=== PATIENT | female | born 1955 | race Caucasian/White ===

== ENCOUNTER 2019-09-19 08:58 | Outpatient (CLI) | payer BC, SELFPAY ==
--- NOTE | 2019-09-19 09:08 | MM_ITS ---
WS: [id number] BILATERAL DIGITAL SCREENING MAMMOGRAPHY WITH CAD CLINICAL INFORMATION: SCREENING HISTORY: Screening mammogram. No current complaints. COMPARISON: April 18, 2018 TECHNIQUE: Bilateral CC and MLO views. FINDINGS: The breasts are composed of heterogeneous fibroglandular density tissue, which can limit the detectio n of small underlying mass lesions. Punctate calcification left breast. No suspicious mass, asymmetry , calcifications, or architectural distortion. No evidence of malignancy. Partially visualized stable intramammary lymph node deep posterior right breast. MM/[id number] IMPRESSION: BI-RADS: 2-Benign FOLLOW UP: 1 Year Follow-up Recommend return to annual screening mammography.
== END 2019-09-19 08:59 | disposition home or self-care (01) ==
PROVIDERS: PCP Family Medicine; Visit Provider Family Medicine
DX: Z12.31 Encounter for screening mammogram for malignant neoplasm of breast (principal)
CPT/HCPCS: 77067

== ENCOUNTER 2020-11-03 09:00 | Outpatient (CLI) | payer BC, SELFPAY ==
--- NOTE | 2020-11-03 09:05 | MM_ITS ---
WS: [id number] Bilateral screening digital mammogram, 11/03/2020 Clinical Data: SCREENING Comparison: 09/19/2019, 04/18/2018, 11/04/2016, 05/21/2012, 05/09/2012, 04/20/2010, 06/23/2008. Findings: The breast parenchymal pattern shows heterogeneous density. No spiculated masses or clustered calcifi cations are seen. There are no secondary signs of carcinoma. Mole markers are on both breasts. There are small lymph nodes in both axilla. MM/[id number] Impression: 1. Negative bilateral mammogram unchanged. 2. Recommend annual screening mammograms. BIRADS: 1-Negative FOLLOW UP: 1 Year Follow-up The CAD schedule checker was used.
== END 2020-11-03 09:01 | disposition home or self-care (01) ==
LOC: RADSHAW 09:03
PROVIDERS: PCP Family Medicine; Visit Provider Family Medicine
DX: Z12.31 Encounter for screening mammogram for malignant neoplasm of breast (principal)
CPT/HCPCS: 77067

== ENCOUNTER 2021-12-13 14:46 | Outpatient (CLI) | payer BC, SELFPAY ==
--- NOTE | 2021-12-13 14:52 | MM_ITS ---
WS: [id number] BILATERAL 3D TOMOSYNTHESIS DIGITAL SCREENING MAMMOGRAPHY WITH CAD CLINICAL INFORMATION: SCREENING HISTORY: Screening mammogram. No current complaints. COMPARISON: November 03, 2020 TECHNIQUE: Bilateral CC and MLO views. FINDINGS: Scattered fibroglandular densities bilaterally. Incidental punctate and lucent centered calcification s. No suspicious focal mass, asymmetry, calcifications, or architectural distortion. No evidence of m alignancy. MM/[id number] IMPRESSION: BI-RADS: 2-Benign FOLLOW UP: 1 Year Follow-up Recommend return to annual screening mammography.
== END 2021-12-13 14:47 | disposition home or self-care (01) ==
LOC: RAD 14:46
PROVIDERS: PCP Family Medicine; Visit Provider Family Medicine
DX: Z12.31 Encounter for screening mammogram for malignant neoplasm of breast (principal)
CPT/HCPCS: 77063; 77067

== ENCOUNTER → 2022-05-05 15:05 | Outpatient (BNVA) | payer MEDICARE, BC, SELFPAY | PROVIDERS: PCP Family Medicine; Visit Provider Nurse Practitioner Family | DX: S82.401A Unspecified fracture of shaft of right fibula, initial encounter for closed fracture (principal); W00.0XXA Fall on same level due to ice and snow, initial encounter | CPT/HCPCS: 73610 ==

== ENCOUNTER 2022-05-05 15:35 | Outpatient (CLI) | payer MEDICARE, BC, SELFPAY | END 2022-05-05 15:36 | disposition home or self-care (01) | LOC: SPT 15:36 | PROVIDERS: PCP Family Medicine; Visit Provider Nurse Practitioner Family | DX: Z46.89 Encounter for fitting and adjustment of other specified devices (principal); S82.831D Other fracture of upper and lower end of right fibula, subsequent encounter for closed fracture with routine healing; X58.XXXD Exposure to other specified factors, subsequent encounter | CPT/HCPCS: 97760; 99204; L4361 ==

== ENCOUNTER → 2022-06-02 13:03 | Outpatient (BNVA) | payer MEDICARE, BC, SELFPAY | PROVIDERS: PCP Family Medicine; Visit Provider Nurse Practitioner Family | DX: S82.441D Displaced spiral fracture of shaft of right fibula, subsequent encounter for closed fracture with routine healing (principal); X58.XXXD Exposure to other specified factors, subsequent encounter | CPT/HCPCS: 73610; 99213 ==

== ENCOUNTER → 2022-07-01 09:50 | Outpatient (BNVA) | payer MEDICARE, BC, SELFPAY | PROVIDERS: PCP Family Medicine; Visit Provider Nurse Practitioner Family | DX: S82.401A Unspecified fracture of shaft of right fibula, initial encounter for closed fracture (principal); X58.XXXA Exposure to other specified factors, initial encounter | CPT/HCPCS: 73610; 99213 ==

== ENCOUNTER 2022-12-20 07:51 | Observation (INO) | payer MEDICARE, BC, SELFPAY ==
[2022-12-20] VITALS (8 sets, daily range): BP systolic 132–174; BP diastolic 59–102; PULSE 70–128; RESP 15–21; TEMP 36.1–36.7; O2SAT 96–100; BMI 26.6
--- NOTE | 2022-12-20 08:06 | CT_ITS ---
WS: [id number] CT ABDOMEN PELVIS TECHNIQUE: Noncontrast CT of the abdomen and pelvis with coronal and sagittal reformatted images. CLINICAL INFORMATION: abd pain COMPARISON: None. DLP: 476.86 mgy/cm All CT scans at [facility] use at least one of these dose optimization techniques: automated e xposure control; mA and/or kV adjustment per patient size (includes targeted exams where dose is matc hed to clinical indication); or iterative reconstruction. FINDINGS: Lung bases are well aerated. Noncontrast liver is normal. Small esophageal hernia. Tiny gallbladder c alculus. No gallbladder wall thickening or pericholecystic fluid. Noncontrast spleen is normal. Splen ic artery calcification. Fatty atrophy of the pancreas. Adrenal glands are normal. No obstructing jt al or ureteral calculi. No hydronephrosis. Prior hysterectomy. Surgical clips in the pelvis degrades some images. RIGHT lower quadrant ostomy. N o evidence of high-grade obstruction. Prior postoperative changes colectomy. No free fluid in the abd omen or pelvis. Tiny fat-containing umbilical hernia. IMPRESSION: 1. Ostomy in the RIGHT lower quadrant. No evidence of high-grade obstruction. Small peristomal herni a. 2. Prior postoperative changes colectomy or near total colectomy. 3. No free fluid in the abdomen or pelvis. 4. Small esophageal hernia. 5. Small gallbladder calculus. No gallbladder wall thickening or pericholecystic fluid. This could b e further evaluated with ultrasound. 6. No other acute findings.
--- NOTE | 2022-12-20 08:12 | W.ED.NAVMDI ---
HPI - Nausea/Vomiting/Diarrhea General: Chief complaint: Nausea/Vomiting/Diarrhea Stated complaint: n/v Time Seen by Provider: 12/20/22 07:54 Source: patient Mode of arrival: ambulatory Limitations: no limitations History of Present Illness: 67-year-old female states that she is had nausea vomiting over the last week. States she seen her PCP has been given Zofran with minimal improvement. She had a history of multiple surgeries has a history of Crohn's states she has been down here taking care of her parents has been under lots of stress she does smoke marijuana. States she has not been able to have anything resolve her vomiting she has had some abdominal cramping denies any severe pain denies any diarrhea denies any fevers. Associated nausea: Yes Associated symtoms: Reports anxiety and nausea; Denies chest pain or headache(s) Review of Systems Const: Denies: fever(s), chills, body aches or change in appetite ENMT: Denies: throat pain or dental pain Card: Denies: chest pain Resp: Denies: dyspnea GI: Reports: abdominal pain, nausea and vomiting; Denies: diarrhea Musc: Denies: neck pain or back pain Skin/Breast: Denies: rash Neuro: Denies: headache(s) Psych: Reports: anxiety PFSH ED PFSH: Medical History Closed left fibular fracture Social History Smoking and tobacco status: current every day smoker Second hand smoke exposure: Yes Smoking risk assessment/counseling performed?: No Alcohol intake: current Alcohol intake frequency: 0-2 Drinks per Day Alcohol type: other Desire information about alcohol rehabilitation?: No Counseling given: No Substance/Drug Use: never Desire information about substance/drug rehabilitation?: No Counseling given: No Physical Exam Const: COMMON NORMALS: no acute distress, patient oriented x3 and healthy appearing HENMT: COMMON NORMALS: normocephalic and atraumatic HEAD & SCALP: normocephalic and atraumatic Neck/C-Spine: COMMON NORMALS: supple Chest: COMMONS NORMALS: normal inspection of the chest Resp: COMMON NORMALS: normal respiratory effort and clear to auscultation bilaterally AUSCULTATION: clear to auscultation bilaterally Cardio: COMMON NORMALS: regular rhythm and No murmurs present (Cardio) RATE: tachycardic RHYTHM: regular rhythm GI: COMMON NORMALS: Normal to inspection, nondistended, normoactive bowel sounds present, Soft to palpation, non-tender and no masses PALPATION: Yes Soft to palpation Extremity: COMMON NORMALS: normal to inspection and full ROM Neuro: COMMON NORMALS: patient oriented x3, moves all extremities and no focal motor deficits Psych: COMMON NORMALS: mental status grossly normal, Normal thought process present and cooperative THOUGHT PROCESS: Normal thought process present Skin: COMMON NORMALS: no rashes or lesions noted and no wounds GENERAL SKIN EXAM: no rashes or lesions noted Course Vital Signs: Vital signs: Vital Signs Temperature 96.9 F L 12/20/22 07:57 Pulse Rate 97 12/20/22 09:47 Respiratory Rate 21 H 12/20/22 09:47 Blood Pressure 142/59 12/20/22 09:47 Pulse Oximetry 100 12/20/22 09:47 Oxygen Delivery Me thod Room Air 12/20/22 09:47 MDM - Nausea/Vomiting/Diarrhea Medical Decision Making Patient presents with vomiting is much improved here she feels much improved after meds and fluids she does have acute kidney injury along with dehydration likely from her vomiting CT of her abdomen is normal no signs of infection she does have an anion gap along with leukocytosis likely from her vomiting and dehydration as well I spoke to the hospitalist will admit at this time. Medical Records I reviewed the patient's medical records. Lab Data 12/20/22 08:13 12/20/22 08:13 Laboratory Results WBC 17.84 10^3/uL (3.29-11.43) H 12/20/22 08:13 RBC 5.28 10^6/uL (3.85-5.65) 12/20/22 08:13 Hgb 16.10 g/dL (11.27-16.99) 12/20/22 08:13 Hct 49.2 % (36-47) H 12/20/22 08:13 MCV 93.2 fl (85-98) 12/20/22 08:13 MCH 30.5 pg (27-33) 12/20/22 08:13 MCHC 32.7 g/dL (30-55) 12/20/22 08:13 RDW 13.8 % (12.1-15.1) 12/20/22 08:13 Plt Count 454 10^3/cmm (157-399) H 12/20/22 08:13 MPV 10.5 fL (7.4-10.4) H 12/20/22 08:13 Neut % (Auto) 83.5 % 12/20/22 08:13 Lymph % (Auto) 9.9 % 12/20/22 08:13 [place]ift % (Auto) 5.9 % 12/20/22 08:13 Eos % (Auto) 0.0 % 12/20/22 08:13 Baso % (Auto) 0.2 % 12/20/22 08:13 Neut # (Auto) 14.90 10^3/uL (1.8-7.7) H 12/20/22 08:13 Lymph # (Auto) 1.8 10^3/uL (0.8-4.8) 12/20/22 08:13 Tift # (Auto) 1.1 10^3/uL (0.2-0.9) H 12/20/22 08:13 Eos # (Auto) 0.0 10^3/uL (0.0-0.8) 12/20/22 08:13 Baso # (Auto) 0.0 10^3/uL (0.0-0.1) 12/20/22 08:13 Nucleated RBC % (auto) 0 % 12/20/22 08:13 Nucleated RBCs # 0.0 /100WBC 12/20/22 08:13 Sodium 134 mmol/L (136-145) L 12/20/22 08:13 Potassium 5.1 mmol/L (3.5-5.1) 12/20/22 08:13 Chloride 102 mmol/L (98-107) 12/20/22 08:13 Carbon Dioxide 11 mmol/L (22-29) L 12/20/22 08:13 Anion Gap 26.1 (5-19) H 12/20/22 08:13 BUN 95 mg/dL (8-23) H* 12/20/22 08:13 Creatinine 2.8 mg/dL (0.5-0.9) H 12/20/22 08:13 GFR Calculation 17.0 mL/min (90-130) L 12/20/22 08:13 Glucose 170 mg/dL (65-115) H 12/20/22 08:13 Calculated Osmolality 311 mOsm/kg (285-295) H 12/20/22 08:13 Calcium 10.5 mg/dL (8.5-10.5) 12/20/22 08:13 Total Bilirubin 0.2 mg/dL (0.15-1.2) 12/20/22 08:13 AST 15 U/L (0-32) 12/20/22 08:13 ALT 20 U/L (0-33) 12/20/22 08:13 Alkaline Phosphatase 144 U/L (35-105) H 12/20/22 08:13 Total Protein 9.0 g/dL (6.6-8.7) H 12/20/22 08:13 Albumin 5.0 g/dL (3.5-5.2) 12/20/22 08:13 Globulin 4.0 g/dL (1.3-4.6) 12/20/22 08:13 Lipase 251 U/L (13-60) H 12/20/22 08:13 Urine Color Yellow (Yellow) 12/20/22 09:24 Urine Appearance Hazy (CLEAR) A 12/20/22 09:24 Urine pH 5 (5-7) 12/20/22 09:24 Ur Specific [place] 1.015 (1.005-1.030) 12/20/22 09:24 Urine Protein Neg (Negative) 12/20/22 09:24 Urine Glucose (UA) Norm (Normal) 12/20/22 09:24 Urine Ketones Negative (Negative) 12/20/22 09:24 Urine Blood Neg (Negative) 12/20/22 09:24 Urine Nitrate Negative (Negative) 12/20/22 09:24 Urine Bilirubin Neg (Negative) 12/20/22 09:24 Urine Urobilinogen Norm mg/dL (Negative) 12/20/22 09:24 Ur Leukocyte Esterase Negative (Negative) 12/20/22 09:24 Urine RBC 0-4 /hpf (0-2) H 12/20/22 09:24 Urine WBC 0-4 /hpf (0-5) H 12/20/22 09:24 Ur Squamous Epith Cells 0-4 /hpf (0-5) H 09/19/23 09:24 Ur Renal Epithelial Cell Rare /hpf 12/20/22 09:24 Amorphous Sediment Not Reportable 12/20/22 09:24 Urine Bacteria Trace /hpf (NONE) 12/20/22 09:24 Hyaline Casts 10-15 /lpf H 12/20/22 09:24 Urine Mucus Trace /hpf 12/20/22 09:24 All radiology interpretation(s) finalized by discharge Discharge Plan Discharge Patient Disposition: Admitted As Inpatient Clinical Impression: Vomiting, Dehydration, Acute kidney injury Condition: Stable Prescriptions: No Action olmesartan 20 mg tablet 20 mg PO DAILY calcitonin (salmon) 200 unit/actuation spray,non-aerosol 1 spray intranasal (ALT) DAILY amlodipine 10 mg tablet 10 mg PO DAILY (DME) cam walking boot See Rx Instructions .ROUTE .MEDSUPPLY Qty: 1 0RF Rx Instructions: As directed atorvastatin 10 mg tablet 10 mg PO QPM venlafaxine 37.5 mg tablet 37.5 mg PO BID metoprolol tartrate 50 mg tablet 50 mg PO BID levothyroxine 112 mcg tablet 112 mcg PO DAILY Referrals: Sugey Bland MD [Primary Care Provider] - Coding Level of Care Code ED [employer] Consultant for [facility] Ma[facility]
[2022-12-20] MEDS: sodium chloride 0.9% 1,000 ML 999 ML IV ×2 (08:20→09:14)
[2022-12-20] MEDS: ondansetron 2 mg/ML SDV 2 mL 4 MG IVP (08:21)
[2022-12-20] MEDS: morphine 4 mg/mL SDV 1 mL IVP (08:21)
[2022-12-20] MEDS: LORazepam 2 mg/mL INJ 1 mL 1 MG IVP (08:23)
[2022-12-20 08:24] LABS: Basophils % 0.2 %; Hematocrit 49.2 % (36-47); Lymphocytes # 1.8 10^3/uL (0.8-4.8); Lymphocytes % 9.9 %; Mean Corpuscular HGB Conc 32.7 g/dL (30-55); Mean Corpuscular Hemoglobin 30.5 pg (27-33); Mean Corpuscular Volume 93.2 fl (85-98); Mean Platelet Volume 10.5 fL (7.4-10.4); Monocytes # 1.1 10^3/uL (0.2-0.9); Monocytes % 5.9 %; Neutrophils % 83.5 %; Nucleated Red Blood Cells % 0 %; Platelet Count 454 10^3/cmm (157-399); Red Blood Count 5.28 10^6/uL (3.85-5.65); Red Cell Distribution Width 13.8 % (12.1-15.1); White Blood Count 17.84 10^3/uL (3.29-11.43)
--- NOTE | 2022-12-20 08:40 | PC.PHAR ---
pt sts she has not taken any meds for two days due to nausea and vomiting
[2022-12-20 08:43] LABS: Alanine Aminotransferase 20 U/L (0-33); Alkaline Phosphatase 144 U/L (35-105); Anion Gap 26.1 (5-19); Aspartate Amino Transferase 15 U/L (0-32); Calcium 10.5 mg/dL (8.5-10.5); Carbon Dioxide 11 mmol/L (22-29); Chloride 102 mmol/L (98-107); Glucose 170 mg/dL (65-115); Lipase 251 U/L (13-60); Osmolality Calculated 311 mOsm/kg (285-295); Potassium 5.1 mmol/L (3.5-5.1); Sodium 134 mmol/L (136-145); Total Bilirubin 0.2 mg/dL (0.15-1.2)
[2022-12-20 08:47] LABS: Blood Urea Nitrogen 95 mg/dL (8-23)
[2022-12-20 10:09] LABS: Add Urine Microscopic? YES; Bilirubin Urine Neg (Negative); Blood Urine Neg (Negative); Glucose Urine UA Norm (Normal); Ketones Urine Negative (Negative); Leukocyte Esterase Urine Negative (Negative); Nitrate Urine Negative (Negative); Protein Urine Neg (Negative); Specific Gravity, Urine 1.015 (1.005-1.030); Urine Appearance Hazy (CLEAR); Urine Color Yellow (Yellow); Urobilinogen Urine Norm (Negative); pH Urine 5 (5-7)
[2022-12-20 10:11] LABS: RBC Urine 0-4 /hpf (0-2); Squamous Epithelial Cell Urine 0-4 /hpf (0-5); WBC Urine 0-4 /hpf (0-5)
[2022-12-20 10:12] LABS: Add Urine Culture? No; Bacteria Urine TRACE /hpf; Mucus Urine TRACE /hpf; Renal Epithelial Cells Urine RARE /hpf
--- NOTE | 2022-12-20 10:55 | XR_ITS ---
WS: [id number] XR chest 1V portable [id number] REASON FOR EXAM: leukocytosis FINDINGS: Chest is unchanged compared to 12/28/2015. Lungs appear mildly hyperexpanded. Mild tortuosity of the thoracic aorta. Normal heart size. Calcified granulomatous disease in both hemithoraces. Small linear area of atelectasis in the left lower lung, otherwise no acute/subacute pulmonary parenc hymal or pleural abnormality. Mild degenerative spondylosis in the mid and lower thoracic spine. IMPRESSION: No acute chest abnormality.
[2022-12-20 11:02] LABS: Creatine Phosphokinase 40 U/L (26-192); Thyroid Stimulating Hormone 0.09 uIU/mL (0.27-4.20)
[2022-12-20 11:23] LABS: Estmated Average Glucose 111; Hemoglobin A1C 5.5 % (4.0-6.0)
--- NOTE | 2022-12-20 11:31 | P.HP_ITS ---
Providers/Chief Complaint Admitting Physician: Shadi De Oliveira MD Primary Care Provider: Sugey Bland MD Chief Complaint: n/v History of Present Illness Sarahi Bruner is a 67 year old female presenting with nausea and vomiting since Monday of last week. She states she has been under tremendous amount of stress. She reports she had a little bit of epigastric pain. She was given some Zofran and Prilosec from her primary care provider but it did not seem to have any beneficial effect. She denies any significant allergy to it. She reports that her output from her ostomy has not changed. She reports that is not more liquid than usual, or more thick than usual. She has not noticed any blood in this either. She reports no new medications. She has not had any re spiratory symptoms. She reports no chest pain, or shortness of breath. She reports she feels quite a bit better, after the dose of Zofran given in the emergency department. She comments that she is now not thrown up for 3 hours. She reports no significant abdominal discomfort currently. She does smoke marijuana occasionally, but has not smoked any since several days prior to vomiting. She does report she has some chills currently. Review of Systems General: Reports: 10 or more systems reviewed and unremarkable except in HPI and below Card: Denies: chest pain Resp: Denies: dyspnea, productive cough or non-productive cough GI: Reports: abdominal pain, nausea and vomiting; Denies: hematemesis, hematochezia or melena Medications/Allergies Home Medications Medication Instructions Recorded Confirmed Last Taken Type amlodipine 10 mg tablet 10 mg PO DAILY 05/05/22 12/20/22 Unknown History calcitonin (salmon) 200 1 spray intranasal (ALT) DAILY 05/05/22 12/20/22 12/19/22 History unit/actuation nasal spray cam walking boot #1 ea 05/05/22 12/20/22 Unknown Rx olmesartan 20 mg tablet 20 mg PO DAILY 05/05/22 12/20/22 Unknown History atorvastatin 10 mg tablet 10 mg PO QPM 12/20/22 12/20/22 Unknown History levothyroxine 112 mcg tablet 112 mcg PO DAILY 12/20/22 12/20/22 Unknown History metoprolol tartrate 50 mg tablet 50 mg PO BID 12/20/22 12/20/22 Unknown History venlafaxine 37.5 mg tablet 37.5 mg PO BID 12/20/22 12/20/22 Unknown History Allergies Allergy/AdvReac Type Severity Reaction Status Date / Time hydrocodone Allergy ALGY-Rash Verified 12/20/22 08:08 omeprazole Allergy Unknown Verified 12/20/22 08:39 ondansetron Allergy Unknown Verified 12/20/22 08:39 PFSH Acute PFSH: Medical History (Updated 12/20/22 @ 12:33 by Shadi De Oliveira MD) Closed left fibular fracture Crohn disease Depression with anxiety Hyperlipidemia Hypothyroidism Osteoporosis Surgical History (Updated 12/20/22 @ 12:28 by Shadi De Oliveira MD) Ileostomy in place Family History (Updated 12/20/22 @ 12:28 by Shadi De Oliveira MD) Other Cancer Social History Smoking and tobacco status: current every day smoker Second hand smoke exposure: Yes Smoking risk assessment/counseling performed?: No Alcohol intake: current Alcohol intake frequency: 0-2 Drinks per Day Alcohol type: other Desire information about alcohol rehabilitation?: No Counseling given: No Substance/Drug Use: never Desire information about substance/drug rehabilitation?: No Counseling given: No Vitals/I&O/Wt Last Vital Signs Temp 96.9 F L 12/20/22 07:57 Pulse 85 12/20/22 10:31 Resp 20 H 12/20/22 10:31 BP 143/65 12/20/22 10:31 Pulse Ox 97 12/20/22 10:31 O2 Del Method Room Air 12/20/22 10:31 12/19/22 12/20/22 12/20/22 22:59 06:59 14:59 Intake Total 1999 Balance 1999 Weight last 48 hrs Weight 72.575 kg Physical Exam Narrative: General exam is a female, reporting she feels little bit better without nausea currently but has obvious chilling. HEENT: Atraumatic normocephalic. Oropharynx clear Neck is supple no lymphadenopathy thyromegaly Cardiovascular regular rate and rhythm without murmur Lungs clear no wheezing or crackles Abdomen is soft nontender with positive bowel sounds. No obvious organomegaly. Ileostomy noted right side of abdomen exam is deferred Extremities no sinus clubbing edema, cap refill brisk Skin no rash Neuro no obvious focal deficits. Data 12/20/22 08:13 12/20/22 08:13 Other Labs: Chest x-ray by my read demonstrates no significant infiltrate. A1c is 5.5, which I ordered for elevated sugar. LFTs are normal with exception of alk phos of 144 Calcium, albumin are normal Lipase elevated to 51 TSH 0.09, which I ordered Urinalysis 0-4 red blood cells 0-4 white blood cells COVID PCR which I ordered is pending I have also ordered an EKG which I will interpret shortly. Abdomen pelvis CT which I also reviewed demonstrated ostomy, no evidence of obstruction, a small gallbladder calculus A&P Assessment and plan (1) Vomiting: Patient presents with recurrent vomiting. Etiology is not determined. This could be viral. Pancreatitis possible although felt less likely. No pancreatic inflammation is seen on CT, only fatty atrophy. Lipase is elevated but likely secondary to repetitive vomiting. No evidence of obstruction on CT. Nausea control Rehydration Clear liquids initiate as tolerated THC use reviewed as well, nothing recently that I would suspect triggered this. She was having some chills in the emergency department. As her white blood cell count is also elevated we will draw blood cultures, and reassess. Initiate empiric Rocephin. (2) Acute kidney injury: Patient has evidence of acute kidney injury and dehydration Hold will olmesartan Rehydration with normal saline CT scan demonstrates no evidence of obstruction CK checked and normal Repeat BMP tomorrow Note this is associated with anion gap metabolic acidosis (3) Hypothyroidism: Patient appears to be oversupplemented with thyroid hormone. Reduce dose to 100 mcg daily (4) Leukocytosis: Likely secondary to demargination with stress but will draw blood culture, close monitoring. Did not add empiric Rocephin secondary to this. (5) Hyperglycemia: Sugar elevated on BMP. Hemoglobin A1c I checked and not elevated. (6) Elevated lipase: Likely secondary to repetitive vomiting. Monitor for recurrent pain. If pain returns in the epigastric area could consider follow-up testing Plan History of Crohn's disease. No liver function test or CT evidence pattern to suggest a sending cholangitis. Other medical problems as outlined in past medical history Full code Heparin will suffice for DVT prophylaxis Attestations Medical Necessity Statement*: Observation currently. May not require over 2 midnight stay for treatment of renal failure and dehydration, although patient's medical condition of new onset renal failure associated with metabolic acidosis is potentially life-threatening and requires close follow-up and laboratory testing as well as treatment with IV fluids. Diagnoses Vomiting R11.10 Acute kidney injury N17.9 Hypothyroidism E03.9 Leukocytosis D72.829 Hyperglycemia R73.9 Elevated lipase R74.8 Time Spent (min) 42
--- NOTE | 2022-12-20 12:45 | ECG_ITS ---
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 Measurements Intervals [place] Rate: 78 P: 75 IA: 167 QRS: 53 QRSD: 70 T: 69 QT: 365 QTc: 418 Interpretive Statements SINUS RHYTHM POSSIBLE LEFT ATRIAL ENLARGEMENT [-0.1mV P-WAVE IN V1/V2] SEPTAL MYOCARDIAL INFARCTION , OF INDETERMINATE AGE [40+ ms Q WAVE IN V1/V2] No previous ECG available for comparison Electronically Signed On 12-20-2022 16:44:01 CDT by Jim Rico M.D. [email or web address]
[2022-12-20 13:50] LABS: Adenovirus Not Detected (NOT DETECT); Chlamydia Pneumoniae Not Detected (NOT DETECT); Coronavirus 229E,HKU1,NL63,OC4 Not Detected (NOT DETECT); Human Metapneumovirus Not Detected (NOT DETECT); Human Rhinovirus/Enterovirus Not Detected (NOT DETECT); Influenza A Not Detected (NOT DETECT); Influenza A H1 Not Detected (NOT DETECT); Influenza A H1-2009 Not Detected (NOT DETECT); Influenza A H3 Not Detected (NOT DETECT); Influenza B Not Detected (NOT DETECT); Mycoplasma Pneumoniae Not Detected (NOT DETECT); Parainfluenza Virus Type 1 Not Detected (NOT DETECT); Parainfluenza Virus Type 2 Not Detected (NOT DETECT); Parainfluenza Virus Type 3 Not Detected (NOT DETECT); Parainfluenza Virus Type 4 Not Detected (NOT DETECT); Respiratory Syncytial Virus A Not Detected (NOT DETECT); Respiratory Syncytial Virus B Not Detected (NOT DETECT); SARS-COV-2 Not Detected (NOT DETECT)
[2022-12-20] MEDS: sodium chloride 0.9% 1,000 ML 125 ML IV ×2 (14:37→22:45)
[2022-12-20] MEDS: cefTRIAXone 1,000 MG in sodium chloride 0.9% (plus) 50 ML 100 MG IV (14:39)
[2022-12-20] MEDS: pantoprazole 40 mg SDV IVP (14:44)
[2022-12-20] MEDS: heparin 5,000 unit/mL INJ 1 mL 5000 UNIT SUBCUT (14:44)
[2022-12-20] MEDS: atorvastatin 40 mg Tablet 20 MG PO (17:31)
[2022-12-20] MEDS: metoprolol tartrate 50 mg Tablet PO (17:32)
[2022-12-20] MEDS: venlafaxine 75 mg Tablet 37.5 MG PO (17:32)
[2022-12-21] MEDS: heparin 5,000 unit/mL INJ 1 mL 5000 UNIT SUBCUT (01:10)
[2022-12-21] MEDS: pantoprazole 40 mg SDV IVP (01:33)
[2022-12-21 04:10] VITALS: BP 148/63; PULSE 67; RESP 16; TEMP 36.7; O2SAT 100
[2022-12-21 04:14] LABS: Basophils % 0.2 %; Hematocrit 37.4 % (36-47); Lymphocytes # 2.4 10^3/uL (0.8-4.8); Lymphocytes % 23.5 %; Mean Corpuscular HGB Conc 31.8 g/dL (30-55); Mean Corpuscular Volume 94.2 fl (85-98); Mean Platelet Volume 10.9 fL (7.4-10.4); Monocytes # 0.9 10^3/uL (0.2-0.9); Monocytes % 9.1 %; Neutrophils # 6.79 10^3/uL (1.8-7.7); Nucleated Red Blood Cells % 0 %; Platelet Count 303 10^3/cmm (157-399); Red Blood Count 3.97 10^6/uL (3.85-5.65); Red Cell Distribution Width 14.1 % (12.1-15.1); White Blood Count 10.13 10^3/uL (3.29-11.43)
[2022-12-21 04:33] LABS: Alanine Aminotransferase 14 U/L (0-33); Albumin Level 3.7 g/dL (3.5-5.2); Alkaline Phosphatase 96 U/L (35-105); Anion Gap 14.7 (5-19); Aspartate Amino Transferase 14 U/L (0-32); Blood Urea Nitrogen 61 mg/dL (8-23); Calcium 8.9 mg/dL (8.5-10.5); Carbon Dioxide 15 mmol/L (22-29); Chloride 117 mmol/L (98-107); Globulin 2.5 g/dL (1.3-4.6); Glomerular Filtration Rate 37.7 mL/min (90-130); Glucose 89 mg/dL (65-115); Magnesium 2.3 mg/dL (1.7-2.3); Osmolality Calculated 311 mOsm/kg (285-295); Potassium 4.7 mmol/L (3.5-5.1); Sodium 142 mmol/L (136-145); Total Bilirubin 0.2 mg/dL (0.15-1.2); Total Protein 6.2 g/dL (6.6-8.7)
[2022-12-21] MEDS: levothyroxine 100 mcg Tablet PO (05:08)
[2022-12-21] MEDS: sodium chloride 0.9% 1,000 ML 125 ML IV (06:12)
[2022-12-21 07:19] VITALS: BP 159/76; PULSE 65; RESP 18; TEMP 36.6; O2SAT 99
[2022-12-21] MEDS: venlafaxine 75 mg Tablet 37.5 MG PO (08:18)
[2022-12-21] MEDS: amlodipine 10 mg Tablet PO (08:19)
[2022-12-21] MEDS: metoprolol tartrate 50 mg Tablet PO (08:19)
--- NOTE | 2022-12-21 10:34 | PC.CHAP ---
Pastoral Care Encounter/Spiritual Assessment Type of Contact [] Declined deck supervisor visit [] Patient/Family/Request visit [] Outpatient visit [] Follow-up visit [] Physician referral [] Code/Alert [x] Routine visit [] Staff referral [] Actively dying [] Patient sleeping [] Family support [] [] Out of room [] Palliative care [] [] Receiving care in room [] Pre-surgical visit [] Trauma [] Long length of stay [] ICU visit [] Other: Relational/Emotional Strength [] Patient feels connected with others/family/visitors/staff [] Distress [] Loneliness/isolation [] Abandonment Spirituality of Patient [] Person of Holly [] Attends Christianity of their Holly [x] Believes in Prayer [] Reads Bible or Christianity materials [] There are Spiritual issues to be addressed Visitor Information Assistant Interventions [x] Prayer [x] Active listening [] Non-anxious presence [] Spiritual/emotional support [] Crisis/trauma care [] Spiritual counseling [] Bereavement support [] Provided bereavement packet [] Provided Bible/devotional materials [] Provided toy/stuffed animal, coloring book to patient or family member [] Provided Communion [] Anointing/[place] [] Salvation [] Completed spiritual assessment [] Other: Impact on Illness or Injury [] Angry [] Fearful [] Anxious [] Often cries [] Exhaustion [] Unable to work [] Unable to attend protestant [] Unable to walk/stand [] Unable to read [] Unable to drive [] Unable to eat/drink [] Unable to sleep [] Unable to be with family [] Patient intubated [] Other: Summary Time spent with patient 10 min
[2022-12-21 11:14] VITALS: BP 143/70; PULSE 65; RESP 18; TEMP 36.7; O2SAT 99
[2022-12-21] MEDS: cefTRIAXone 1,000 MG in sodium chloride 0.9% (plus) 50 ML 100 MG IV (12:22)
--- NOTE | 2022-12-21 12:22 | PM.DCS ---
Discharge Providers Date of Admission: 12/20/22 10:30 Date of Discharge: December 21, 2022 Attending Provider at Admission: Shadi De Oliveira MD Attending Provider at Discharge: Shadi De Oliveira MD Primary Care Provider: Sugey Bland MD Diagnoses at Discharge Discharge Diagnosis (1) Vomiting: Status: Acute (2) Acute kidney injury: Status: Acute (3) Hypothyroidism: Status: Acute (4) Leukocytosis: Status: Acute (5) Hyperglycemia: Status: Acute (6) Elevated lipase: Status: Acute Reason for Visit Reason for Visit: n/v Hospital Course Hospital Course Patient presented to the hospital with vomiting, over the last 6 days. She had some epigastric pain with the vomiting. No blood in stool or black or tarry stool. She was found to have significant renal failure, with a BUN of 95 and creatinine of 2.8, and associated metabolic acidosis. She was given IV fluids, noncontrast CT of her abdomen pelvis demonstrated no evidence of obstruction to her urinary tract, or GI tract obstruction. Nausea control, IV Protonix were given and supportive care. Clear liquids were initiated when she was no longer nauseous. Over the course of her hospital stay, this was increased to full liquids and she had no nausea, or vomiting. She was passing good stool from her stoma. It was thought she could discharge home, with close follow-up with her primary care provider. She was told not to restart her olmesartan until Monday. She is to avoid all anti-inflammatories. She was placed on Protonix which she had received in the hospital without difficulty. She should have follow-up of her renal studiesdone as an outpatient next week. Discharge creatinine was 1.4. Other testing done in the hospital included COVID PCR which was negative. A TSH was done that was low so her thyroid hormone was reduced. Lipase was elevated, but thought secondary to repetitive vomiting as no evidence of pancreas inflammation was noted on CT. Patient was given an opportunity ask questions and agreed with the plan. Physical Exam Narrative: General exam no distress Neck is supple Cardiovascular regular rate and rhythm, no murmur Lungs clear Abdomen is soft, nontender Extremities no sinus clubbing edema, cap refill brisk Discharge Data Studies Completed and Pending Completed Studies During Hospitalization Category Date Time Status CT abdomen pelvis wo con [id number] Stat Cat Scan 12/20/22 08:06 Completed XR chest 1V portable [id number] Stat Exams 12/20/22 10:55 Completed Pending at discharge Category Date Time Status Blood Culture Stat Lab 12/20/22 14:03 Results Laboratory Results WBC 10.13 10^3/uL (3.29-11.43) 12/21/22 03:37 RBC 3.97 10^6/uL (3.85-5.65) 12/21/22 03:37 Hgb 11.90 g/dL (11.27-16.99) 12/21/22 03:37 Hct 37.4 % (36-47) 12/21/22 03:37 MCV 94.2 fl (85-98) 12/21/22 03:37 MCH 30.0 pg (27-33) 12/21/22 03:37 MCHC 31.8 g/dL (30-55) 12/21/22 03:37 RDW 14.1 % (12.1-15.1) 12/21/22 03:37 Plt Count 303 10^3/cmm (157-399) D 12/21/22 03:37 MPV 10.9 fL (7.4-10.4) H 12/21/22 03:37 Neut % (Auto) 67.0 % 12/21/22 03:37 Lymph % (Auto) 23.5 % 12/21/22 03:37 [place] % (Auto) 9.1 % 12/21/22 03:37 Eos % (Auto) 0.0 % 12/21/22 03:37 Baso % (Auto) 0.2 % 12/21/22 03:37 Neut # (Auto) 6.79 10^3/uL (1.8-7.7) 12/21/22 03:37 Lymph # (Auto) 2.4 10^3/uL (0.8-4.8) 12/21/22 03:37 [place] # (Auto) 0.9 10^3/uL (0.2-0.9) 12/21/22 03:37 Eos # (Auto) 0.0 10^3/uL (0.0-0.8) 12/21/22 03:37 Baso # (Auto) 0.0 10^3/uL (0.0-0.1) 12/21/22 03:37 Nucleated RBC % (auto) 0 % 12/21/22 03:37 Nucleated RBCs # 0.0 /100WBC 12/21/22 03:37 Sodium 142 mmol/L (136-145) 12/21/22 03:37 Potassium 4.7 mmol/L (3.5-5.1) 12/21/22 03:37 Chloride 117 mmol/L (98-107) H 12/21/22 03:37 Carbon Dioxide 15 mmol/L (22-29) L 12/21/22 03:37 Anion Gap 14.7 (5-19) 12/21/22 03:37 BUN 61 mg/dL (8-23) H 12/21/22 03:37 Creatinine 1.4 mg/dL (0.5-0.9) H 12/21/22 03:37 GFR Calculation 37.7 mL/min (90-130) L 12/21/22 03:37 Glucose 89 mg/dL (65-115) 12/21/22 03:37 Estimat Average Glucose 111 12/20/22 08:13 Hemoglobin A1c 5.5 % (4.0-6.0) 12/20/22 08:13 Calculated Osmolality 311 mOsm/kg (285-295) H 12/21/22 03:37 Calcium 8.9 mg/dL (8.5-10.5) 12/21/22 03:37 Magnesium 2.3 mg/dL (1.7-2.3) 12/21/22 03:37 Total Bilirubin 0.2 mg/dL (0.15-1.2) 12/21/22 03:37 AST 14 U/L (0-32) 12/21/22 03:37 ALT 14 U/L (0-33) 12/21/22 03:37 Alkaline Phosphatase 96 U/L (35-105) 12/21/22 03:37 Creatine Kinase 40 U/L (26-192) 12/20/22 08:13 Total Protein 6.2 g/dL (6.6-8.7) L D 12/21/22 03:37 Albumin 3.7 g/dL (3.5-5.2) 12/21/22 03:37 Globulin 2.5 g/dL (1.3-4.6) 12/21/22 03:37 Lipase 251 U/L (13-60) H 12/20/22 08:13 TSH 0.09 uIU/mL (0.27-4.20) L 12/20/22 08:13 Urine Color Yellow (Yellow) 12/20/22 09:24 Urine Appearance Hazy (CLEAR) A 12/20/22 09:24 Urine pH 5 (5-7) 12/20/22 09:24 Ur Specific [place] 1.015 (1.005-1.030) 12/20/22 09:24 Urine Protein Neg (Negative) 12/20/22 09:24 Urine Glucose (UA) Norm (Normal) 12/20/22 09:24 Urine Ketones Negative (Negative) 12/20/22 09:24 Urine Blood Neg (Negative) 12/20/22 09:24 Urine Nitrate Negative (Negative) 12/20/22 09:24 Urine Bilirubin Neg (Negative) 12/20/22 09:24 Urine Urobilinogen Norm mg/dL (Negative) 12/20/22 09:24 Ur Leukocyte Esterase Negative (Negative) 12/20/22 09:24 Urine RBC 0-4 /hpf (0-2) H 12/20/22 09:24 Urine WBC 0-4 /hpf (0-5) H 12/20/22 09:24 Ur Squamous Epith Cells 0-4 /hpf (0-5) H 12/20/22 09:24 Ur Renal Epithelial Cell Rare /hpf 12/20/22 09:24 Amorphous Sediment Not Reportable 12/20/22 09:24 Urine Bacteria Trace /hpf (NONE) 12/20/22 09:24 Hyaline Casts 10-15 /lpf H 12/20/22 09:24 Urine Mucus Trace /hpf 12/20/22 09:24 Coronavirus 229E (PCR) Not detected (NOT DETECT) 12/20/22 11:50 SARS-CoV-2 (PCR) Not detected (NOT DETECT) 12/20/22 11:50 Vitals Last Vital Signs Temp 98.0 F 12/21/22 11:14 Pulse 65 12/21/22 11:14 Resp 18 12/21/22 11:14 BP 143/70 12/21/22 11:14 Pulse Ox 99 12/21/22 11:14 O2 Del Method Room Air 12/21/22 11:14 Discharge Plan Discharge Patient Disposition: Home Condition: Stable Prescriptions: New levothyroxine [Levoxyl] 100 mcg Tablet 100 mcg PO QAM Qty: 30 0RF pantoprazole [Protonix] 40 mg tablet,delayed release (DR/EC) 40 mg PO DAILY Qty: 30 0RF Continued olmesartan 20 mg tablet 20 mg PO DAILY calcitonin (salmon) 200 unit/actuation spray,non-aerosol 1 spray intranasal (ALT) DAILY amlodipine 10 mg tablet 10 mg PO DAILY (DME) cam walking boot See Rx Instructions .ROUTE .MEDSUPPLY Qty: 1 0RF Rx Instructions: As directed atorvastatin 10 mg tablet 10 mg PO QPM venlafaxine 37.5 mg tablet 37.5 mg PO BID metoprolol tartrate 50 mg tablet 50 mg PO BID Discontinued levothyroxine 112 mcg tablet 112 mcg PO DAILY Discharge Orders: Discharge Order (Routine); Ordered 12/21/22 Ordered By: Shadi De Oliveira Referrals: Sugey Bland MD [Primary Care Provider] - 4-7 days (BMP on follow-up) Patient Instructions: Opioid Safety Activity Restrictions/Additional Instructions: Take all medicine as prescribed Follow-up with your primary care provider next week with a BMP Do not resume your olmesartan until Monday Reduce caffeine in diet No anti-inflammatories. Discharge Attestations Time Spent in Discharge Care*: greater than 30 min Quality Metrics Clinical Quality Measures [ No reported AMI, CVA or VTE this stay] Coding Level of Care Code 72078 Total time (in minutes) for Discharge: 31 Diagnoses Vomiting R11.10 Acute kidney injury N17.9 Hypothyroidism E03.9 Leukocytosis D72.829 Hyperglycemia R73.9 Elevated lipase R74.8
[2022-12-21 13:54] VITALS: BP 143/70; PULSE 65; RESP 18; TEMP 36.7; O2SAT 99
== END 2022-12-21 13:56 | disposition home or self-care (01) ==
LOC: ER 10:34 → MEDSURG 13:43
PROVIDERS: Admitting Provider Internal Medicine; Emergency Provider Emergency Medicine; PCP Family Medicine; Visit Provider Internal Medicine
DX: R11.0 Nausea (principal); N17.9 Acute kidney failure, unspecified; E03.9 Hypothyroidism, unspecified; D72.829 Elevated white blood cell count, unspecified; R73.9 Hyperglycemia, unspecified; R74.8 Abnormal levels of other serum enzymes; E78.5 Hyperlipidemia, unspecified; M81.0 Age-related osteoporosis without current pathological fracture; F17.210 Nicotine dependence, cigarettes, uncomplicated
CPT/HCPCS: 36415; 71045; 74176; 80053; 81001; 82550; 83036; 83690; 83735; 84443; 85025; 87040; 87635; 93005; 96365; 96372; 96375; 99285; C9113; G0378; J0696; J1644; J2060; J2270; J2405; J7030

== ENCOUNTER 2022-12-22 10:18 | Emergency (ER) | payer MEDICARE, BC, SELFPAY ==
[2022-12-22 10:21] VITALS: BP 190/84; PULSE 78; RESP 15; O2SAT 99; BMI 26.6
--- NOTE | 2022-12-22 10:24 | ED_ITS ---
HPI - Abdominal Pain General: Chief Complaint: Abdominal Pain Stated Complaint: upper abd pain Time Seen by Provider: 12/22/22 10:19 Source: patient and family Mode of arrival: EMS Limitations: no limitations History of Present Illness: Patient is a 67-year-old female presents to ED today with a complaint of upper abdominal pain. Patient states she was recently hospitalized here with a complaint of nausea and vomiting and found to have acute kidney injury with a BUN/Cr of 95/2.8. Patient states she was discharged yesterday. She states she woke up this morning and took her medications including her new medication, Protonix. She states she immediately began feeling very off . She started guzman ving severe epigastric pain, nausea, and then vomited x 1. States she vomited up all her morning medications. She states she began feeling very anxious and thought maybe she was having an allergic reaction. She states she told her she needed to go back to the hospital. They ended up stopping in route when they passed a trooper so he could contact EMS. Past abdominal surgeries include a total colectomy years ago for Crohn's Disease, hysterectomy, appendectomy. She states output from her ostomy has been normal. MD elicited complaint: abdominal pain Pertinent past history: other (total colectomy, hysterectomy, appendectomy; recent hospitalization) Onset (ago): hour(s) Pain Consistency: constant Location: Epigastric Severity: severe Quality: sharp Radiation: none Migration to: no migration Relieving factors: nothing Associated Symptoms: Reports nausea, vomiting and other (ostomy output normal); Denies chills, dysuria, fever(s) and syncope Related Data: Patient : No Review of Systems Const: Reports: other (states that she just doesn't feel right ); Denies: fever(s), chills, body aches, fatigue or malaise Card: Denies: chest pain, palpitations, irregular heart rhythm, edema, swelling of feet/ankles, lightheadedness, syncope, pre-syncope, dyspnea on exertion, orthopnea, leg pain with exertion or acrocyanosis Resp: Denies: dyspnea GI: Reports: abdominal pain, nausea, vomiting and other (ostomy output normal) : Denies: flank pain or dysuria Musc: Denies: neck pain, back pain, extremity pain or joint pain Skin/Breast: Denies: rash Neuro: Denies: headache(s), numbness in extremities, weakness in extremities, sensory changes or dizziness PFSH ED PFSH: Medical History Closed left fibular fracture Crohn disease Depression with anxiety Hyperlipidemia Hypothyroidism Osteoporosis Surgical History Ileostomy in place Family History Other Cancer Social History Smoking and tobacco status: current every day smoker Second hand smoke exposure: Yes Smoking risk assessment/counseling performed?: No Alcohol intake: current Alcohol intake frequency: 0-2 Drinks per Day Alcohol type: other Desire information about alcohol rehabilitation?: No Counseling given: No Substance/Drug Use: never Desire information about substance/drug rehabilitation?: No Counseling given: No Physical Exam Const: COMMON NORMALS: average body habitus, patient oriented x3, no limitations, healthy appearing, alert and well nourished GENERAL APPEARANCE: cooperative and anxious (tremulous at times) ORIENTATION/CONSCIOUSNESS: Yes awake, Yes oriented to person, Yes oriented to place and Yes oriented to time HENMT: COMMON NORMALS: normocephalic and atraumatic HEAD & SCALP: normal to inspection, normocephalic and atraumatic Eye: GENERAL EYE: appearance normal, both eyes and all related structures Neck/C-Spine: COMMON NORMALS: full ROM, no lymphadenopathy, no meningeal signs and no JVD Chest: COMMONS NORMALS: normal inspection of the chest and normal palpation of entire chest wall Resp: COMMON NORMALS: normal respiratory effort and clear to auscultation bilaterally AUSCULTATION: clear to auscultation bilaterally Cardio: COMMON NORMALS: no JVD, regular rate and regular rhythm RATE: regular rate RHYTHM: regular rhythm GI: COMMON NORMALS: Normal to inspection, nondistended, normoactive bowel sounds present, Soft to palpation, No hepatosplenomegaly present and no masses INSPECTION: Yes normal to inspection AUSCULTATION: Yes normoactive bowel sounds PALPATION: Yes Soft to palpation, Yes Tenderness to palpation present (GI) (R side of abdomen), No Guarding due to palpation present (GI), No Rigid due to palpation and Yes No hepatosplenomegaly present OTHER: ileostomy appears normal : COMMON NORMALS: Yes no CVA tenderness BLADDER/KIDNEY EXAM: Yes no CVA tenderness Back/Pelvis: COMMON NORMALS: no CVA tenderness Extremity: COMMON NORMALS: normal to inspection GENERAL: Yes normal exam except as noted Neuro: RADHA COMA SCALE: document GCS findings Radha coma scale eye opening: Spontaneous [place] coma scale verbal response: Orientated Radha coma scale motor response: Obey commands Radha coma scale total score: 15 COMMON NORMALS: patient oriented x3, moves all extremities, no focal motor deficits and no sensory deficits noted SENSORIUM/ORIENTATION: Yes alert, Yes oriented to person, Yes oriented to place and Yes oriented to time MENINGEAL SIGNS: Yes no meningeal signs Skin: NARRATIVE SKIN EXAM: multiple small telangiectasia appearing lesions to anterior chest Course Vital Signs: Vital signs: Vital Signs Pulse Rate 66 12/22/22 11:07 Respiratory Rate 18 12/22/22 11:07 Blood Pressure 172/90 12/22/22 11:07 Pulse Oximetry 99 12/22/22 11:07 Oxygen Delivery Me thod Room Air 12/22/22 10:21 MDM - Abdominal Pain Medical Decision Making Upon re-examination patient appears much improved. She has not had any vomiting while here. Work-up consisting of CBC, CMP, lipase, UA as well as cardiac work- up given the epigastric discomfort. She has no complaints of chest pain. Her her baseline and EKG are completely normal. She did have a mildly elevated baseline troponin at 17 with negative delta. CXR normal. Remainder of blood work is fairly unremarkable. Lipase is still slightly elevated but is trending edwin nward from the 251 that she had while in the hospital. Her CT scan performed 2 days ago showed no evidence of pancreatitis. US gallbladder ordered as she did have epigastric pain, nausea, vomiting and CT scan from 2 days ago did show gallstones. Ultrasound showed cholelithiasis without evidence of cholecystitis. CBD was normal. At this time I do not see any reason for readmission to the hospital. I think symptoms this morning most likely were just secondary to attempting to eat/drink/take medications in general and probably not necessarily an allergic reaction to the Protonix. Patient states she does have nausea medications at home. Patient states she has scheduled follow-up visits with her primary care doctor as well as general surgery for evaluation for possible EGD. We did discuss possibly HIDA scan if they felt indicated. Did discuss repeating CT scan today however this was completed 2 days ago and due to improving symptoms I think this is probably unnecessary at this time. She will be allowed discharge with strict return ED precautions. Lab Data 12/22/22 10:45 12/22/22 10:45 Labs/Radiology: Radiology Impressions Chest X-Ray 12/22/22 10:35 IMPRESSION: Stable chest. No active disease. Laboratory Results WBC 15.45 10^3/uL (3.29-11.43) H 12/22/22 10:45 RBC 4.25 10^6/uL (3.85-5.65) 12/22/22 10:45 Hgb 12.70 g/dL (11.27-16.99) 12/22/22 10:45 Hct 38.4 % (36-47) 12/22/22 10:45 MCV 90.4 fl (85-98) 12/22/22 10:45 MCH 29.9 pg (27-33) 12/22/22 10:45 MCHC 33.1 g/dL (30-55) 12/22/22 10:45 RDW 13.8 % (12.1-15.1) 12/22/22 10:45 Plt Count 302 10^3/cmm (157-399) 12/22/22 10:45 MPV 10.4 fL (7.4-10.4) 12/22/22 10:45 Neut % (Auto) 85.0 % 12/22/22 10:45 Lymph % (Auto) 9.1 % 12/22/22 10:45 [place] % (Auto) 5.5 % 12/22/22 10:45 Eos % (Auto) 0.0 % 12/22/22 10:45 Baso % (Auto) 0.1 % 12/22/22 10:45 Neut # (Auto) 13.13 10^3/uL (1.8-7.7) H 12/22/22 10:45 Lymph # (Auto) 1.4 10^3/uL (0.8-4.8) 12/22/22 10:45 [place] # (Auto) 0.9 10^3/uL (0.2-0.9) 12/22/22 10:45 Eos # (Auto) 0.0 10^3/uL (0.0-0.8) 12/22/22 10:45 Baso # (Auto) 0.0 10^3/uL (0.0-0.1) 12/22/22 10:45 Nucleated RBC % (auto) 0 % 12/22/22 10:45 Nucleated RBCs # 0.0 /100WBC 12/22/22 10:45 Sodium 139 mmol/L (136-145) 12/22/22 10:45 Potassium 4.0 mmol/L (3.5-5.1) 12/22/22 10:45 Chloride 109 mmol/L (98-107) H 12/22/22 10:45 Carbon Dioxide 17 mmol/L (22-29) L 12/22/22 10:45 Anion Gap 17.0 (5-19) 12/22/22 10:45 BUN 24 mg/dL (8-23) H 12/22/22 10:45 Creatinine 0.9 mg/dL (0.5-0.9) 12/22/22 10:45 GFR Calculation 62.8 mL/min (90-130) L 12/22/22 10:45 Glucose 111 mg/dL (65-115) 12/22/22 10:45 Calculated Osmolality 293 mOsm/kg (285-295) 12/22/22 10:45 Calcium 9.2 mg/dL (8.5-10.5) 12/22/22 10:45 Total Bilirubin 0.3 mg/dL (0.15-1.2) 12/22/22 10:45 AST 25 U/L (0-32) 12/22/22 10:45 ALT 21 U/L (0-33) 12/22/22 10:45 Alkaline Phosphatase 103 U/L (35-105) 12/22/22 10:45 Troponin T Baseline 17 ng/L (0-10) H 12/22/22 10:45 Troponin T 120 Minute 14.89 ng/L (0-10) H 12/22/22 12:25 Delta Troponin T -2.11 ABS# (0-10) L 12/22/22 12:25 Total Protein 6.7 g/dL (6.6-8.7) 12/22/22 10:45 Albumin 4.2 g/dL (3.5-5.2) 12/22/22 10:45 Globulin 2.5 g/dL (1.3-4.6) 12/22/22 10:45 Lipase 119 U/L (13-60) H 12/22/22 10:45 Urine Color Yellow (Yellow) 12/22/22 12:05 Urine Appearance Clear (CLEAR) 12/22/22 12:05 Urine pH 5 (5-7) 12/22/22 12:05 Ur Specific [place] 1.015 (1.005-1.030) 12/22/22 12:05 Urine Protein Neg (Negative) 12/22/22 12:05 Urine Glucose (UA) Norm (Normal) 12/22/22 12:05 Urine Ketones 1+ (Negative) H 12/22/22 12:05 Urine Blood Trace (Negative) H 12/22/22 12:05 Urine Nitrate Negative (Negative) 12/22/22 12:05 Urine Bilirubin Neg (Negative) 12/22/22 12:05 Urine Urobilinogen Norm mg/dL (Negative) 12/22/22 12:05 Ur Leukocyte Esterase Negative (Negative) 12/22/22 12:05 Urine RBC 0-4 /hpf (0-2) H 12/22/22 12:05 Urine WBC Rare /hpf (0-5) 12/22/22 12:05 Ur Squamous Epith Cells Rare /hpf (0-5) 12/22/22 12:05 Amorphous Sediment Not Reportable 12/22/22 12:05 Urine Bacteria Trace /hpf (NONE) 12/22/22 12:05 All radiology interpretation(s) finalized by discharge Discharge Plan Discharge Patient Disposition: Home Clinical Impression: Epigastric abdominal pain Cholelithiasis Qualifiers: Cholelithiasis location: gallbladder Cholecystitis presence: without cholecystitis Biliary obstruction: without biliary obstruction Qualified Code(s): K80.20 - Calculus of gallbladder without cholecystitis without obstruction Condition: Stable Prescriptions: No Action olmesartan 20 mg tablet 20 mg PO DAILY calcitonin (salmon) 200 unit/actuation spray,non-aerosol 1 spray intranasal (ALT) DAILY amlodipine 10 mg tablet 10 mg PO DAILY (DME) cam walking boot See Rx Instructions .ROUTE .MEDSUPPLY Qty: 1 0RF Rx Instructions: As directed atorvastatin 10 mg tablet 10 mg PO QPM venlafaxine 37.5 mg tablet 37.5 mg PO BID metoprolol tartrate 50 mg tablet 50 mg PO BID pantoprazole [Protonix] 40 mg tablet,delayed release (DR/EC) 40 mg PO DAILY Qty: 30 0RF levothyroxine 112 mcg tablet 112 mcg PO DAILY Discharge Orders: Discharge ED (Routine); Ordered 12/22/22 Ordered By: Lisa Melgar Referrals: Sugey Bland MD [Primary Care Provider] - Patient Instructions: Abdominal Pain (ED) Activity Restrictions/Additional Instructions: As we discussed continue current plan to meet with general surgery/GI specialist for evaluation for EGD. He may also speak to him in regards to HIDA scan r egarding your gallbladder/gallstones as symptoms could be secondary to biliary colic. I think it is reasonable for you to continue taking your pantoprazole. You may return to the emergency department for severe abdominal pain, repetitive episodes of vomiting, lack of output from your ostomy, fevers, generally feeling worse or unwell, or any other concerns you may have. It was a pleasure to care for you today. I hope you begin to feel better soon. Coding Level of Care Code ED Candy Wrapping Machine Operator for Nicolas Pleitez
--- NOTE | 2022-12-22 10:35 | XRR_ITS ---
PROCEDURE INFORMATION: Exam: XR Chest Exam date and time: 12/22/2022 10:38 AM Age: 67 years old Clinical indication: Other: Epigastric pain TECHNIQUE: Imaging protocol: Radiologic exam of the chest. Views: 1 view. COMPARISON: CR XR chest 1V portable [id number] 12/20/2022 11:00 AM FINDINGS: Lungs: Minor atelectatic changes left lower lung zone, stable otherwise lung nath are clear. Pleural spaces: Unremarkable. No pleural effusion. No pneumothorax. Heart/Mediastinum: Unremarkable. No cardiomegaly. Bones/joints: Unremarkable for age. XR/XR chest 1V portable [id number] IMPRESSION: Stable chest. No active disease.
--- NOTE | 2022-12-22 10:35 | ECG_ITS ---
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 Measurements Intervals [place] Rate: 64 P: 76 MT: 158 QRS: 59 QRSD: 70 T: 53 QT: 404 QTc: 419 Interpretive Statements SINUS RHYTHM Compared to ECG 12/20/2022 12:45:32 Myocardial infarct finding no longer present Electronically Signed On 12-22-2022 12:15:03 CDT by Jim Rico M.D. [id number]
[2022-12-22 10:53] LABS: Basophils % 0.1 %; Hematocrit 38.4 % (36-47); Lymphocytes # 1.4 10^3/uL (0.8-4.8); Lymphocytes % 9.1 %; Mean Corpuscular HGB Conc 33.1 g/dL (30-55); Mean Corpuscular Hemoglobin 29.9 pg (27-33); Mean Corpuscular Volume 90.4 fl (85-98); Mean Platelet Volume 10.4 fL (7.4-10.4); Monocytes # 0.9 10^3/uL (0.2-0.9); Monocytes % 5.5 %; Neutrophils # 13.13 10^3/uL (1.8-7.7); Nucleated Red Blood Cells % 0 %; Platelet Count 302 10^3/cmm (157-399); Red Blood Count 4.25 10^6/uL (3.85-5.65); Red Cell Distribution Width 13.8 % (12.1-15.1); White Blood Count 15.45 10^3/uL (3.29-11.43)
[2022-12-22 11:07] VITALS: BP 172/90; PULSE 66; RESP 18; O2SAT 99
[2022-12-22 11:14] LABS: Alanine Aminotransferase 21 U/L (0-33); Albumin Level 4.2 g/dL (3.5-5.2); Alkaline Phosphatase 103 U/L (35-105); Aspartate Amino Transferase 25 U/L (0-32); Blood Urea Nitrogen 24 mg/dL (8-23); Calcium 9.2 mg/dL (8.5-10.5); Carbon Dioxide 17 mmol/L (22-29); Chloride 109 mmol/L (98-107); Globulin 2.5 g/dL (1.3-4.6); Glomerular Filtration Rate 62.8 mL/min (90-130); Glucose 111 mg/dL (65-115); Lipase 119 U/L (13-60); Osmolality Calculated 293 mOsm/kg (285-295); Sodium 139 mmol/L (136-145); Total Bilirubin 0.3 mg/dL (0.15-1.2); Total Protein 6.7 g/dL (6.6-8.7)
[2022-12-22 11:17] LABS: Troponin(5th) Baseline 17 ng/L (0-10)
--- NOTE | 2022-12-22 11:38 | US_ITS ---
WS: [id number] RIGHT UPPER QUADRANT ULTRASOUND HISTORY: pain, N/V COMPARISON: 09/25/2017 Liver: 14.4 cm in length. Normal size liver and echogenicity. No bile duct dilatation or mass. Portal Vein: Normal hepatopetal flow with monophasic waveform. Gallbladder: Mildly hydropic gallbladder. Gallbladder measures less than 4 mm in transverse diameter. There are a few stones within the gallbladder lumen. No gallbladder wall thickening or pericholecyst ic fluid. CBD: 0.5 cm Pancreas: Normal size and echogenicity. Right kidney: 10.2 cm in length. Normal size and echogenicity. No hydronephrosis or mass. Aorta and IVC: Unremarkable abdominal aorta and IVC. No ascites. IMPRESSION: 1. Cholelithiasis without evidence for acute cholecystitis. Gallbladder measuring under [address] 2. Normal sized common bile duct.
[2022-12-22] MEDS: metoclopramide 5 mg/mL SDV 2 mL 10 MG IVP (11:42)
[2022-12-22 12:21] LABS: Glucose Urine UA Norm (Normal); Ketones Urine 1+ (Negative); Protein Urine Neg (Negative); Specific Gravity, Urine 1.015 (1.005-1.030); Urine Appearance Clear (CLEAR); Urine Color Yellow (Yellow); pH Urine 5 (5-7)
[2022-12-22 12:22] LABS: Add Urine Culture? No; Add Urine Microscopic? YES; Bacteria Urine TRACE /hpf; Bilirubin Urine Neg (Negative); Blood Urine Trace (Negative); Leukocyte Esterase Urine Negative (Negative); Nitrate Urine Negative (Negative); RBC Urine 0-4 /hpf (0-2); Squamous Epithelial Cell Urine RARE /hpf (0-5); Urobilinogen Urine Norm (Negative); WBC Urine RARE /hpf (0-5)
--- NOTE | 2022-12-22 12:32 | ECG_ITS ---
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 Measurements Intervals [place] Rate: 66 P: 78 OK: 155 QRS: 59 QRSD: 85 T: 59 QT: 407 QTc: 429 Interpretive Statements SINUS RHYTHM Compared to ECG 12/22/2022 10:40:16 No significant changes Electronically Signed On 12-22-2022 14:03:23 CDT by Jim Rico M.D. [id number]
[2022-12-22 13:18] LABS: Troponin 5 2HR 14.89 ng/L (0-10)
[2022-12-22 13:19] LABS: Troponin 5 2HR Delta -2.11 ABS# (0-10)
== END 2022-12-22 14:24 | disposition home or self-care (01) ==
PROVIDERS: Emergency Provider Physician Assistant; PCP Family Medicine
DX: K80.20 Calculus of gallbladder without cholecystitis without obstruction (principal); R10.13 Epigastric pain; E78.5 Hyperlipidemia, unspecified; F17.210 Nicotine dependence, cigarettes, uncomplicated
CPT/HCPCS: 36415; 71045; 76705; 80053; 81001; 83690; 84484; 85025; 93005; 96374; 99285; J2765

== ENCOUNTER 2023-12-07 11:20 | Inpatient (IN) | payer MEDICARE, BC, SELFPAY ==
[2023-12-07] VITALS (8 sets, daily range): BP systolic 113–162; BP diastolic 59–95; PULSE 85–90; RESP 14–17; TEMP 36.3; O2SAT 95–100; BMI 25.0
--- NOTE | 2023-12-07 11:22 | ECG_ITS ---
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 Measurements Intervals [place] Rate: 86 P: 81 MO: 150 QRS: 65 QRSD: 81 T: 77 QT: 344 QTc: 412 Interpretive Statements SINUS RHYTHM POSSIBLE LEFT ATRIAL ENLARGEMENT [-0.1mV P-WAVE IN V1/V2] Compared to ECG 12/22/2022 12:32:54 No significant changes Electronically Signed On 12-07-2023 16:08:25 CDT by Jim Rico M.D. [id number]
[2023-12-07 12:01] LABS: Basophils % 0.2 %; Hematocrit 45.1 % (36-47); Lymphocytes # 1.6 10^3/uL (0.8-4.8); Lymphocytes % 9.9 %; Mean Corpuscular HGB Conc 32.6 g/dL (30-55); Mean Corpuscular Hemoglobin 30.2 pg (27-33); Mean Corpuscular Volume 92.6 fl (85-98); Mean Platelet Volume 10.5 fL (7.4-10.4); Monocytes # 0.9 10^3/uL (0.2-0.9); Monocytes % 5.5 %; Neutrophils # 13.41 10^3/uL (1.8-7.7); Nucleated Red Blood Cells % 0 %; Platelet Count 408 10^3/cmm (157-399); Red Blood Count 4.87 10^6/uL (3.85-5.65); White Blood Count 15.96 10^3/uL (3.29-11.43)
[2023-12-07 12:17] LABS: Alanine Aminotransferase 16 U/L (0-33); Albumin Level 4.7 g/dL (3.5-5.2); Alkaline Phosphatase 120 U/L (35-105); Anion Gap 22.1 (5-19); Aspartate Amino Transferase 15 U/L (0-32); Blood Urea Nitrogen 60 mg/dL (8-23); Calcium 9.4 mg/dL (8.5-10.5); Chloride 108 mmol/L (98-107); Creatinine Clr Calc Pharmacy 26.8267; Globulin 3.6 g/dL (1.3-4.6); Glomerular Filtration Rate 24.9 mL/min (90-130); Glucose 128 mg/dL (65-115); Lipase 165 U/L (13-60); Osmolality Calculated 297 mOsm/kg (285-295); Potassium 5.1 mmol/L (3.5-5.1); Sodium 134 mmol/L (136-145); Total Bilirubin 0.3 mg/dL (0.15-1.2); Total Protein 8.3 g/dL (6.6-8.7)
[2023-12-07 12:37] LABS: Carbon Dioxide 9 mmol/L (22-29)
--- NOTE | 2023-12-07 13:27 | ED_ITS ---
HPI - Nausea/Vomiting/Diarrhea 2 General: Chief complaint: Nausea/Vomiting/Diarrhea Stated complaint: Weak,n,v Time Seen by Provider: 12/07/23 13:26 History of Present Illness: 68-year-old female comes in today for co mplaints of nausea and vomiting starting yesterday, diarrhea x 1 week. Patient has a ileostomy secondary to Crohn's disease where she has had to have a colectomy. Patient has had the ileostomy for 20 years. Patient reports that she was seen on Monday the third and was started on amoxicillin for concerns of a possible arterial infection although it was believed she most likely had a viral illness. Patient believes that she is dehydrated and just feels weak. Patient has known cholelithiasis but denies any abdominal pain. Patient does report some left shoulder pain. Related Data Home Medications Medication Instructions Recorded Confirmed amlodipine 10 mg tablet 10 mg PO DAILY 05/05/22 12/07/23 calcitonin (salmon) 200 1 spray intranasal (ALT) DAILY 05/05/22 12/07/23 unit/actuation nasal spray olmesartan 20 mg tablet 20 mg PO DAILY 05/05/22 12/07/23 atorvastatin 10 mg tablet 10 mg PO QPM 12/20/22 12/07/23 metoprolol tartrate 50 mg tablet 50 mg PO BID 12/20/22 12/07/23 venlafaxine 37.5 mg tablet 37.5 mg PO BID 12/20/22 12/07/23 levothyroxine 100 mcg tablet 100 mcg PO DAILY 12/07/23 12/07/23 ondansetron 4 mg disintegrating 4 mg PO BID PRN Nausea 12/07/23 12/07/23 tablet pantoprazole 40 mg tablet,delayed 40 mg PO DAILY PRN Acid Reflux 12/07/23 12/07/23 release (Protonix) Previous Rx's Medication Instructions Recorded amoxicillin 500 mg capsule 500 mg PO BID #14 caps 12/05/23 Allergies Allergy/AdvReac Type Severity Reaction Status Date / Time hydrocodone Allergy ALGY-Rash Verified 12/05/23 12:17 omeprazole Allergy Unknown Verified 12/05/23 12:17 ondansetron Allergy Unknown Verified 12/05/23 12:17 Review of Systems 2 General: Reports: 10 or more systems reviewed and unremarkable except in HPI and below PFSH ED 2 PFSH: Medical History Osteoporosis Hypothyroidism Hyperlipidemia Depression with anxiety Crohn disease Closed left fibular fracture Surgical History Ileostomy in place Family History Other Cancer Social History Smoking and tobacco/nicotine status: current every day tobacco/nicotine user Second hand smoke exposure: Yes Alcohol intake: current Alcohol intake frequency: 0-2 Drinks per Day Alcohol type: other Substance/Drug Use: never Physical Exam 2 Const: COMMON NORMALS: alert HENMT: COMMON NORMALS: normocephalic HEAD & SCALP: normocephalic MOUTH: moist mucous membranes abnormal Details: parched THROAT: posterior oropharynx normal Neck/C-Spine: COMMON NORMALS: full ROM Chest: COMMONS NORMALS: normal palpation of entire chest wall Resp: COMMON NORMALS: normal respiratory effort and clear to auscultation bilaterally AUSCULTATION: clear to auscultation bilaterally Cardio: COMMON NORMALS: regular rate and regular rhythm RATE: regular rate RHYTHM: regular rhythm GI: COMMON NORMALS: Soft to palpation and non-tender PALPATION: Yes Soft to palpation Back/Pelvis: COMMON NORMALS: thoracic and lumbar spine normal to inspection Extremity: COMMON NORMALS: full ROM Neuro: SENSORIUM/ORIENTATION: Yes alert Skin: COMMON NORMALS: turgor normal GENERAL SKIN EXAM: turgor normal Course 2 Vital Signs: Vital signs: Vital Signs Temperature 97.4 F L 12/07/23 12:00 Pulse Rate 85 12/07/23 12:00 Respiratory Rate 14 12/07/23 14:03 Blood Pressure 154/95 12/07/23 13:37 Pulse Oximetry 98 12/07/23 14:03 Oxygen Delivery Me thod Room Air 12/07/23 14:03 MDM - Nausea/Vomiting/Diarrhea Medical Decision Making 68-year-old female comes in today for complaints of diarrhea x 1 week. Patient stated seeing the primary care office on Monday and started on amoxicillin for possible viral infection. Patient reports vomited last night which concerned her which prompted her to come to the ER today. Patient reports some general weakness and some left shoulder pain that radiates to her elbow. Patient denies any chest pain or shortness of breath. Abdomen soft and nontender. Bowel sounds are normal active. Differential diagnosis includes dehydration, BRENTON, bowel obstruction, pyelonephritis, cholecystitis, pancreatitis. CT of the abdomen and pelvis was unremarkable. CBC noted a white count of 15,000, sodium was 134, anion gap was 22, creatinine was 2.0, bun was 60, initial troponin was 15 repeat troponin was 26 with a delta of 11's, lipase was 165, urinalysis was unremarkable. Patient seems to have acute kidney injury most likely due to dehydration and nausea vomiting and diarrhea. Reviewed exam with Dr. Torres, attending ER physician, he agreed with plan for admission for IV fluids and monitoring. Discussed patient with Dr. Jackson, who agreed for admission to medical surgical unit for IV fluids and recommended a C. difficile testing of stool. Lab Data 12/07/23 11:42 12/07/23 11:42 Radiology Impressions Abdomen/Pelvis CT 12/07/23 13:39 IMPRESSION: 1. Mild fluid distention of the stomach. 2. RIGHT lower quadrant ileostomy with no obstruction. Near complete total colectomy. 3. Cholelithiasis without acute cholecystitis. 4. No renal obstruction. Laboratory Results WBC 15.96 10^3/uL (3.29-11.43) H 12/07/23 11:42 RBC 4.87 10^6/uL (3.85-5.65) 12/07/23 11:42 Hgb 14.70 g/dL (11.27-16.99) 12/07/23 11:42 Hct 45.1 % (36-47) 12/07/23 11:42 MCV 92.6 fl (85-98) 12/07/23 11:42 MCH 30.2 pg (27-33) 12/07/23 11:42 MCHC 32.6 g/dL (30-55) 12/07/23 11:42 RDW 14.0 % (12.1-15.1) 12/07/23 11:42 Plt Count 408 10^3/cmm (157-399) H 12/07/23 11:42 MPV 10.5 fL (7.4-10.4) H 12/07/23 11:42 Neut % (Auto) 84.0 % 12/07/23 11:42 Lymph % (Auto) 9.9 % 12/07/23 11:42 Josephine % (Auto) 5.5 % 12/07/23 11:42 Eos % (Auto) 0.0 % 12/07/23 11:42 Baso % (Auto) 0.2 % 12/07/23 11:42 Neut # (Auto) 13.41 10^3/uL (1.8-7.7) H 12/07/23 11:42 Lymph # (Auto) 1.6 10^3/uL (0.8-4.8) 12/07/23 11:42 Josephine # (Auto) 0.9 10^3/uL (0.2-0.9) 12/07/23 11:42 Eos # (Auto) 0.0 10^3/uL (0.0-0.8) 12/07/23 11:42 Baso # (Auto) 0.0 10^3/uL (0.0-0.1) 12/07/23 11:42 Nucleated RBC % (auto) 0 % 12/07/23 11:42 Nucleated RBCs # 0.0 /100WBC 12/07/23 11:42 Sodium 134 mmol/L (136-145) L 12/07/23 11:42 Potassium 5.1 mmol/L (3.5-5.1) 12/07/23 11:42 Chloride 108 mmol/L (98-107) H 12/07/23 11:42 Carbon Dioxide 9 mmol/L (22-29) L 12/07/23 11:42 Anion Gap 22.1 (5-19) H 12/07/23 11:42 BUN 60 mg/dL (8-23) H 12/07/23 11:42 Creatinine 2.0 mg/dL (0.5-0.9) H 12/07/23 11:42 GFR Calculation 24.9 mL/min (90-130) L 12/07/23 11:42 Glucose 128 mg/dL (65-115) H 12/07/23 11:42 Calculated Osmolality 297 mOsm/kg (285-295) H 12/07/23 11:42 Lactic Acid 1.5 mmol/L (0.5-2.2) 12/07/23 11:42 Calcium 9.4 mg/dL (8.5-10.5) 12/07/23 11:42 Total Bilirubin 0.3 mg/dL (0.15-1.2) 12/07/23 11:42 AST 15 U/L (0-32) 12/07/23 11:42 ALT 16 U/L (0-33) 12/07/23 11:42 Alkaline Phosphatase 120 U/L (35-105) H 12/07/23 11:42 Troponin T Baseline 15 ng/L (0-10) H 12/07/23 11:42 Troponin T 120 Minute 26.36 ng/L (0-10) H 12/07/23 13:53 Delta Troponin T 11.36 ABS# (0-10) H* 12/07/23 13:53 Total Protein 8.3 g/dL (6.6-8.7) 12/07/23 11:42 Albumin 4.7 g/dL (3.5-5.2) 12/07/23 11:42 Globulin 3.6 g/dL (1.3-4.6) 12/07/23 11:42 Lipase 165 U/L (13-60) H 12/07/23 11:42 Urine Color Yellow (Yellow) 12/07/23 13:33 Urine Appearance Cloudy (CLEAR) A 12/07/23 13:33 Urine pH 5.5 (5-7) 12/07/23 13:33 Ur Specific Jamison 1.020 (1.005-1.030) 12/07/23 13:33 Urine Protein 2+ (Negative) A 12/07/23 13:33 Urine Glucose (UA) Negative (Normal) 12/07/23 13:33 Urine Ketones Trace (Negative) 12/07/23 13:33 Urine Blood Negative (Negative) 12/07/23 13:33 Urine Nitrate Negative (Negative) 12/07/23 13:33 Urine Bilirubin Negative (Negative) 12/07/23 13:33 Urine Urobilinogen 1.0 mg/dL (Negative) 12/07/23 13:33 Ur Leukocyte Esterase Negative (Negative) 12/07/23 13:33 Urine RBC 0-4 /hpf (0-2) H 12/07/23 13:33 Urine WBC 0-4 /hpf (0-5) H 12/07/23 13:33 Ur Squamous Epith Cells 0-4 /hpf (0-5) H 12/07/23 13:33 Amorphous Sediment Not Reportable 12/07/23 13:33 Urine Bacteria 1+ /hpf (NONE) H 12/07/23 13:33 Hyaline Casts 80-100 /lpf H 12/07/23 13:33 All radiology interpretation(s) finalized by discharge EKG Data EKG 1: I personally reviewed and interpreted this EKG as follows: EKG interpretation date: 12/07/23 EKG interpretation time: 14:51 Interpretation: EKG shows a sinus rhythm with a regular rate at [address] elevation or ectopy is noted. Mild artifact is present on left exam. No prior exam was available for immediate comparison. Discharge Plan Discharge Patient Disposition: Admitted As Inpatient Clinical Impression: BRENTON (acute kidney injury), Acute dehydration, Elevated troponin Condition: Stable Coding Level of Care Code ED Accounting Administrator for Nicolas Pleitez
--- NOTE | 2023-12-07 13:39 | CT_ITS ---
WS: [id number] CT ABDOMEN AND PELVIS NONCONTRAST HISTORY: n/v/d persistent TECHNIQUE: Imaging performed through the abdomen and pelvis. Coronal and sagittal reformats are submi tted. All CT scans at [facility] use at least one of these dose optimization techniques: auto mated exposure control; mA and/or kV adjustment per patient size (includes targeted exams where dose is matched to clinical indication); or iterative reconstruction. DLP: 430.93 mGy.cm COMPARISON: 12/20/2022 Lower thorax: Lung bases are clear. Visualized heart is normal. Small hiatal hernia. Liver: Normal size liver. No mass or bile duct dilatation. Gallbladder: Normally distended with cholelithiasis. Pancreas: Diffuse pancreatic atrophy. No duct dilatation. Spleen: Normal. Adrenal glands: Mild thickening of the LEFT adrenal gland. Right kidney: Normal size kidney with no mass or hydronephrosis. Left kidney: Normal size kidney with no mass or hydronephrosis. Aorta: Mild atherosclerosis abdominal aorta with no aneurysm. No free fluid, intraperitoneal air or significant lymphadenopathy. GI tract: Fluid distended stomach. Postoperative changes of a colectomy. Ileostomy in the RIGHT lower quadrant. There is no obstruction. Abdominal wall: Negative. No hernia. Pelvis: Nondistended bladder. Prior hysterectomy. Osseous structures: Unremarkable. CT/CT abdomen pelvis wo con [id number] IMPRESSION: 1. Mild fluid distention of the stomach. 2. RIGHT lower quadrant ileostomy with no obstruction. Near complete total col ectomy. 3. Cholelithiasis without acute cholecystitis. 4. No renal obstruction.
[2023-12-07] MEDS: lactated ringers 1,000 ML 999 ML IV ×2 (13:47→14:54)
[2023-12-07 13:55] LABS: Lactic Sepsis W/Reflex 1.5 mmol/L (0.5-2.2)
[2023-12-07 14:01] LABS: Troponin(5th) Baseline 15 ng/L (0-10)
[2023-12-07 14:06] LABS: Charge for UA Resulting for Rev
[2023-12-07 14:17] LABS: Bilirubin Urine Negative (Negative); Blood Urine Negative (Negative); Glucose Urine UA Negative (Normal); Ketones Urine Trace (Negative); Leukocyte Esterase Urine Negative (Negative); Nitrate Urine Negative (Negative); Protein Urine 2+ (Negative); Urine Appearance Cloudy (CLEAR); Urine Color Yellow (Yellow); pH Urine 5.5 (5-7)
[2023-12-07 14:30] LABS: Troponin 5 2HR 26.36 ng/L (0-10)
[2023-12-07 14:35] LABS: Troponin 5 2HR Delta 11.36 ABS# (0-10)
[2023-12-07 14:49] LABS: Add Urine Culture? No; Bacteria Urine 1+ /hpf; Hyaline Casts Urine 80-100 /lpf; RBC Urine 0-4 /hpf (0-2); Squamous Epithelial Cell Urine 0-4 /hpf (0-5); UA Manual Slide Review YES; UA Slide Review UA Slide Review Perf; WBC Urine 0-4 /hpf (0-5)
--- NOTE | 2023-12-07 14:51 | ECG_ITS ---
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 Measurements Intervals [place] Rate: 94 P: 72 [place]: 168 QRS: 67 QRSD: 70 T: 75 QT: 327 QTc: 410 Interpretive Statements SINUS RHYTHM SEPTAL MYOCARDIAL INFARCTION , OF INDETERMINATE AGE [40+ ms Q WAVE IN V1/V2] Compared to ECG 12/22/2022 12:32:54 Myocardial infarct finding now present Electronically Signed On 12-07-2023 14:55:28 CDT by Jim Rico M.D. [id number]
--- NOTE | 2023-12-07 15:33 | ECG_ITS ---
[facility] Test Date: 2023-12-07 Pat Name: Sarahi Bruner Department: Room: Gender: Female Quality Officer: : 1955 Requested By: Suman Lima Order Number: [id number] Mark MD: Jim Rico M.D. Measurements Intervals [place] Rate: 73 P: 75 [place]: 160 QRS: 44 QRSD: 70 T: 73 QT: 359 QTc: 398 Interpretive Statements SINUS RHYTHM SEPTAL MYOCARDIAL INFARCTION , OF INDETERMINATE AGE [40+ ms Q WAVE IN V1/V2] Compared to ECG 12/07/2023 14:51:48 No significant changes Electronically Signed On 12-07-2023 16:08:29 CDT by Jim Rico M.D. [id number]
--- NOTE | 2023-12-07 15:57 | P.HP_ITS ---
Providers/Chief Complaint 2 Primary Care Provider: Sugey Bland MD Chief Complaint: Weak,n,v History of Present Illness Sarahi Bruner is a 68 year old female with history of Crohn disease (status post colectomy has a terminal ileum with a bag presented with cyclical vomiting. Patient is stating that he was at mother's house, had a mosquito bite and then started getting queasy feeling in her epigastric region she thought she probably having a stomach flu. Started vomiting, her symptoms started last night, she has vomited up to more than [address] scan in the ER did not show any small bowel inflammation however stomach has mild fluid retention, patient received Reglan and Zofran alternating basis. Hemodynamics able no active chest pain or shortness of breath, afebrile. I have started her on metronidazole and cefepime for concern of SIBO Patient has history of hypertension takes metoprolol along olmesartan which she has not taken last 24 hours Patient is stating that she has this diagnosis of cyclical vomiting which gets worse whenever she gets stomach flu. Review of Systems 2 Const: Denies: fever(s) Eyes: Denies: change in vision ENMT: Denies: throat pain Card: Denies: chest pain Resp: Denies: dyspnea GI: Reports: abdominal pain, nausea and vomiting : Denies: flank pain Medications/Allergies Home Medications Medication Instructions Recorded Confirmed Last Taken Type amlodipine 10 mg tablet 10 mg PO DAILY 05/05/22 12/07/23 12/06/23 History calcitonin (salmon) 200 1 spray intranasal (ALT) DAILY 05/05/22 12/07/23 12/06/23 History unit/actuation nasal spray olmesartan 20 mg tablet 20 mg PO DAILY 05/05/22 12/07/23 12/06/23 History atorvastatin 10 mg tablet 10 mg PO QPM 12/20/22 12/07/23 12/06/23 History metoprolol tartrate 50 mg tablet 50 mg PO BID 12/20/22 12/07/23 12/06/23 History venlafaxine 37.5 mg tablet 37.5 mg PO BID 12/20/22 12/07/23 12/06/23 History amoxicillin 500 mg capsule 500 mg PO BID #14 caps 12/05/23 12/07/23 Unknown Rx levothyroxine 100 mcg tablet 100 mcg PO DAILY 12/07/23 12/07/23 12/07/23 History ondansetron 4 mg disintegrating 4 mg PO BID PRN Nausea 12/07/23 12/07/23 Unknown History tablet pantoprazole 40 mg tablet,delayed 40 mg PO DAILY PRN Acid Reflux 12/07/23 12/07/23 Unknown History release (Protonix) Allergies Allergy/AdvReac Type Severity Reaction Status Date / Time hydrocodone Allergy ALGY-Rash Verified 12/05/23 12:17 omeprazole Allergy Unknown Verified 12/05/23 12:17 PFSH Acute 2 PFSH: Medical History Osteoporosis Hypothyroidism Hyperlipidemia Depression with anxiety Crohn disease Closed left fibular fracture Surgical History Ileostomy in place Family History Other Cancer Social History Smoking and tobacco/nicotine status: current every day tobacco/nicotine user Second hand smoke exposure: Yes Alcohol intake: current Alcohol intake frequency: 0-2 Drinks per Day Alcohol type: other Substance/Drug Use: never Vitals/I&O/Wt Last Vital Signs Temp 97.4 F L 12/07/23 12:00 Pulse 85 12/07/23 12:00 Resp 16 12/07/23 15:52 BP 113/59 12/07/23 15:52 Pulse Ox 97 12/07/23 15:52 O2 Del Method Room Air 12/07/23 15:52 12/07/23 12/07/23 12/07/23 06:59 14:59 22:59 Intake Total 1000 / 1000 Balance 1000 / 1000 Weight last 48 hrs Weight 68.039 kg Physical Exam 2 Narrative: Patient is pleasant and cooperative Ileostomy bag in place with stool Abdomen is soft Pleasant cooperative Nonfocal GCS 15 hemodynamic stable Hypertensive Vomited 6 times in the hospital S1, S2 Afebrile Data 12/07/23 11:42 12/07/23 11:42 A&P Assessment and plan (1) BRENTON (acute kidney injury): (2) Acute dehydration: (3) Elevated troponin: (4) Cyclical vomiting: (5) Metabolic acidosis: Plan Cyclical vomiting Severe metabolic acidosis BRENTON Dehydration Crohn's disease status post colectomy Concern for enteritis versus SIBO Start IV fluids Monitor electrolytes Start bicarb drip for next 12 hours I would allow clear diet for now Concern for SIBO added cefepime and metronidazole Rule out C. difficile Afebrile If becomes febrile will request COVID-19 PCR Hypertension: Continue oral antihypertensive regimen Full code Clear liquid diet DVT prophylaxis heparin Attestations 2 Medical Necessity Statement*: Anticipating more than 2 midnights Diagnoses BRENTON (acute kidney injury) N17.9 Acute dehydration E86.0 Elevated troponin R79.89 Cyclical vomiting R11.15 Metabolic acidosis E87.20
[2023-12-07 17:58] LABS: Troponin 5 6HR 36.51 ng/L (0-10)
[2023-12-07 18:01] LABS: Troponin 5 6HR Delta 21.51 ng/L (0-12)
[2023-12-07] MEDS: LORazepam 2 mg/mL INJ 1 mL 0.5 MG IVP (18:53)
[2023-12-07] MEDS: sodium chloride 0.9% 1,000 ML 75 ML IV (18:55)
[2023-12-07] MEDS: enoxaparin 40 mg/0.4 mL Syringe SUBCUT (18:55)
[2023-12-07] MEDS: pantoprazole 40 mg SDV IVP (18:55)
[2023-12-07] MEDS: metroNIDAZOLE IV 500 MG/100 ML PREMIX 100 MG IV (18:56)
[2023-12-07] MEDS: metoclopramide 5 mg/mL SDV 2 mL IVP (19:08)
[2023-12-07] MEDS: cefepime 2,000 MG in sodium chloride 0.9% (plus) 50 ML 100 MG IV (21:54)
[2023-12-07] MEDS: heparin 5,000 unit/mL INJ 1 mL 5000 UNIT SUBCUT (21:55)
[2023-12-07] MEDS: sodium bicarbonate 150 MEQ in dextrose 5% 1,000 ML 100 MEQ IV (21:57)
--- NOTE | 2023-12-07 21:58 | ECG_ITS ---
[facility] Test Date: 2023-12-07 Pat Name: Sarahi Bruner Department: Room: 253 Gender: Female Sports Reporter: : 1955 Requested By: Suman Lima Order Number: [id number] Mark MD: Juan Carlos Angelo M.D. Measurements Intervals [place] Rate: 81 P: 74 [place]: 151 QRS: 37 QRSD: 85 T: 66 QT: 362 QTc: 421 Interpretive Statements SINUS RHYTHM Compared to ECG 12/07/2023 15:52:20 Myocardial infarct finding no longer present Electronically Signed On 12-08-2023 17:07:34 CDT by Juan Carlos Angelo M.D. [id number]
[2023-12-08] VITALS (10 sets, daily range): BP systolic 117–163; BP diastolic 66–77; PULSE 66–99; RESP 15–18; TEMP 36.6–37.1; O2SAT 94–100
[2023-12-08 00:01] LABS: C.Diff PCR (Lab) NEGATIVE (Negative)
[2023-12-08] MEDS: metroNIDAZOLE IV 500 MG/100 ML PREMIX 100 MG IV ×3 (01:49→18:53)
[2023-12-08 05:18] LABS: Basophils % 0.2 %; Lymphocytes # 2.1 10^3/uL (0.8-4.8); Lymphocytes % 25.6 %; Mean Corpuscular HGB Conc 32.6 g/dL (30-55); Mean Corpuscular Hemoglobin 29.8 pg (27-33); Mean Corpuscular Volume 91.6 fl (85-98); Mean Platelet Volume 10.5 fL (7.4-10.4); Monocytes # 0.8 10^3/uL (0.2-0.9); Monocytes % 9.8 %; Neutrophils # 5.19 10^3/uL (1.8-7.7); Nucleated Red Blood Cells % 0 %; Platelet Count 295 10^3/cmm (157-399); Red Blood Count 3.82 10^6/uL (3.85-5.65); Red Cell Distribution Width 13.9 % (12.1-15.1)
[2023-12-08 05:46] LABS: Anion Gap 16.3 (5-19); Blood Urea Nitrogen 48 mg/dL (8-23); Calcium 8.4 mg/dL (8.5-10.5); Carbon Dioxide 16 mmol/L (22-29); Chloride 109 mmol/L (98-107); Glomerular Filtration Rate 37.6 mL/min (90-130); Glucose 106 mg/dL (65-115); Magnesium 2.1 mg/dL (1.7-2.3); Osmolality Calculated 297 mOsm/kg (285-295); Phosphorus 4.2 mg/dL (2.5-4.5); Potassium 4.3 mmol/L (3.5-5.1); Sodium 137 mmol/L (136-145)
[2023-12-08] MEDS: metoclopramide 5 mg/mL SDV 2 mL IVP (09:01)
[2023-12-08] MEDS: heparin 5,000 unit/mL INJ 1 mL 5000 UNIT SUBCUT ×2 (09:14→18:52)
[2023-12-08] MEDS: levothyroxine 100 mcg Tablet PO (09:26)
--- NOTE | 2023-12-08 09:37 | PC.CHAP ---
Pastoral Care Encounter/Spiritual Assessment Type of Contact [] Declined licensed staff mft visit [] Patient/Family/Request visit [] Outpatient visit [] Follow-up visit [] Physician referral [] Code/Alert [] Routine visit [] Staff referral [] Actively dying [] Patient sleeping [] Family support [] [] Out of room [] Palliative care [] [X] Receiving care in room [] Pre-surgical visit [] Trauma [] Long length of stay [] ICU visit [] Other: Relational/Emotional Strength [] Patient feels connected with others/family/visitors/staff [] Distress [] Loneliness/isolation [] Abandonment Spirituality of Patient [] Person of Holly [] Attends Religious of their Holly [] Believes in Prayer [] Reads Bible or Latter-Day materials [] There are Spiritual issues to be addressed 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 Truck 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 Interventions [] Prayer [] Active listening [] Non-anxious presence [] Spiritual/emotional support [] Crisis/trauma care [] Spiritual counseling [] Bereavement support [] Provided bereavement packet [] Provided Bible/devotional materials [] Provided toy/stuffed animal, coloring book to patient or family member [] Provided Communion [] Anointing/Sparks [] Salvation [] Completed spiritual assessment [] Other: Impact on Illness or Injury [] Angry [] Fearful [] Anxious [] Often cries [] Exhaustion [] Unable to work [] Unable to attend hoahaoism [] Unable to walk/stand [] Unable to read [] Unable to drive [] Unable to eat/drink [] Unable to sleep [] Unable to be with family [] Patient intubated [] Other: Summary Time spent with patient
[2023-12-08] MEDS: cefepime 1,000 MG in sodium chloride 0.9% (plus) 50 ML 100 MG IV ×2 (09:38→20:29)
--- NOTE | 2023-12-08 09:51 | PC.SOCIAL ---
IMM Update pg 2 of IMM updated and reviewed w/ patient. Copy provided and copy dated, initialed and placed in chart.
[2023-12-08] MEDS: pantoprazole 40 mg SDV IVP ×2 (09:59→17:36)
--- NOTE | 2023-12-08 10:27 | PC.NURSE ---
Addendum entered by Elizabeth Martini RN 12/08/23 14:05: instructor of sociology was present when student nurse notified Dr. Roman. Original Note: Student nurse notified physician Dr. Roman that pt was not able to take AM PO medications due to nausea and vomiting
[2023-12-08] MEDS: promethazine 25 mg/mL SDV 1 mL 12.5 MG IM (10:56)
--- NOTE | 2023-12-08 12:20 | P.PN_ITS ---
Subjective 2 Subjective: seen today nausea better but still present states she ate chicken frozen dinner and her symptoms after that she cannot have corn and there was corn in that frozen dinner, she is unsure if that may be a trigger she is starting to feel slightly better has post nasal drip and that is making her gag and nauseated as well Vitals/I&O/Wt Last Vital Signs Temp 98.3 F 12/08/23 12:17 Pulse 87 12/08/23 12:17 Resp 15 12/08/23 12:17 BP 132/74 12/08/23 12:17 Pulse Ox 94 12/08/23 12:17 O2 Del Method Room Air 12/08/23 12:17 12/07/23 12/08/23 12/08/23 22:59 06:59 14:59 Intake Total 375 / 1375 100 / 1475 2440 / 2440 Output Total 75 / 75 Balance 300 / 1300 100 / 1400 2440 / 2440 Weight last 48 hrs Weight 72.575 kg Weight 68.039 kg Weight 68.039 kg Physical Exam 2 Narrative: Patient is pleasant and cooperative Ileostomy bag in place with stool Abdomen is soft Pleasant cooperative Nonfocal GCS 15 hemodynamic stable Hypertensive holding vomitus bag in hand, had some nauseating gagging episodes. S1, S2 Afebrile Data 12/08/23 04:28 12/08/23 04:28 A&P Assessment and plan (1) BRENTON (acute kidney injury): (2) Acute dehydration: (3) Elevated troponin: (4) Cyclical vomiting: (5) Metabolic acidosis: Plan Cyclical vomiting Severe metabolic acidosis BRENTON Dehydration Crohn's disease status post colectomy Concern for enteritis versus SIBO Start IV fluids Monitor electrolytes Start bicarb drip for next 12 hours I would allow clear diet for now Concern for SIBO added cefepime and metronidazole Rule out C. difficile Afebrile If becomes febrile will request COVID-19 PCR Hypertension: Continue oral antihypertensive regimen Full code Clear liquid diet DVT prophylaxis heparin 12/07 continue bicarb gtt recheck BMP at noon, dc bicarb when > 20 continue reglan and will order 1x phenergen high sensitivity trop 21 delta at 6 hours, most likely due to demand ischemia, coronary event probabality very low, pt had active vomitting denies chest pain, shortness of breath cr improved to 1.4, continue on IV fluids Attestations 2 Medical Necessity Statement*: continue to monitor in hospital for above medical issues Diagnoses BRENTON (acute kidney injury) N17.9 Acute dehydration E86.0 Elevated troponin R79.89 Cyclical vomiting R11.15 Metabolic acidosis E87.20
[2023-12-08] MEDS: sodium chloride 0.9% 1,000 ML 125 ML IV ×2 (13:48→23:47)
[2023-12-08 16:22] LABS: Anion Gap 20.7 (5-19); Blood Urea Nitrogen 39 mg/dL (8-23); Calcium 8.8 mg/dL (8.5-10.5); Carbon Dioxide 18 mmol/L (22-29); Chloride 109 mmol/L (98-107); Glomerular Filtration Rate 44.9 mL/min (90-130); Glucose 102 mg/dL (65-115); Osmolality Calculated 306 mOsm/kg (285-295); Potassium 4.7 mmol/L (3.5-5.1); Sodium 143 mmol/L (136-145)
[2023-12-08] MEDS: metoprolol tartrate 50 mg Tablet PO (17:35)
[2023-12-08] MEDS: magnesium oxide 400 mg tablet PO (17:35)
[2023-12-08] MEDS: venlafaxine 75 mg Tablet 37.5 MG PO (17:35)
[2023-12-09] MEDS: metroNIDAZOLE IV 500 MG/100 ML PREMIX 100 MG IV ×2 (02:17→11:12)
[2023-12-09 04:00] VITALS: BP 130/65; PULSE 70; RESP 15; TEMP 36.6; O2SAT 98
[2023-12-09] MEDS: heparin 5,000 unit/mL INJ 1 mL 5000 UNIT SUBCUT (06:51)
[2023-12-09 07:59] VITALS: BP 175/77; PULSE 70; RESP 18; TEMP 36.4; O2SAT 96
[2023-12-09] MEDS: metoprolol tartrate 50 mg Tablet PO (08:47)
[2023-12-09] MEDS: sodium chloride 0.9% 1,000 ML 125 ML IV (08:47)
[2023-12-09] MEDS: venlafaxine 75 mg Tablet 37.5 MG PO (08:48)
[2023-12-09] MEDS: potassium chloride ER 20 mEq Tablet PO (08:48)
[2023-12-09] MEDS: levothyroxine 100 mcg Tablet PO (08:48)
[2023-12-09] MEDS: amlodipine 10 mg Tablet PO (08:48)
[2023-12-09] MEDS: magnesium oxide 400 mg tablet PO (08:48)
[2023-12-09] MEDS: pantoprazole 40 mg SDV IVP (08:48)
[2023-12-09] MEDS: cefepime 1,000 MG in sodium chloride 0.9% (plus) 50 ML 100 MG IV (08:49)
[2023-12-09 11:02] VITALS: PULSE 62; RESP 16; O2SAT 99
[2023-12-09 11:48] VITALS: BP 171/82; PULSE 62; RESP 16; TEMP 36.7; O2SAT 99
[2023-12-09] MEDS: hyDRALAzine 25 mg Tablet PO (12:02)
--- NOTE | 2023-12-09 13:52 | P.DS_ITS ---
Discharge Providers Date of Admission: 12/07/23 17:30 Date of Discharge: December 09, 2023 Attending Provider at Admission: Faith Jackson MD Attending Provider at Discharge: Jaren Quinn MD Primary Care Provider: Sugey Bland MD Diagnoses at Discharge Discharge Diagnosis (1) BRENTON (acute kidney injury): Status: Acute (2) Acute dehydration: Status: Acute (3) Elevated troponin: Status: Acute (4) Cyclical vomiting: Status: Acute (5) Metabolic acidosis: Status: Acute Reason for Visit Reason for Visit: Weak,n,v Hospital Course Hospital Course Sarahi Bruner is a 68-year-old female with past medical history significant for Crohn's disease status post colectomy with ileostomy who presented with cyclic vomiting, found to have acute kidney injury, dehydration, metabolic acidosis, acute myocardial injury, and suspected gastroenteritis. She was treated with IV fluids and IV antibiotics. Symptoms significantly improved. Metabolic acidosis and kidney injury improved. Patient was adamant to be discharged by day of discharge. She was rotated to oral antibiotics and oral bicarb. She is to follow-up with her primary provider within 1 week for repeat labs. Physical Exam Narrative: General: Patient is awake and alert. Head: Normocephalic. Atraumatic. EOM intact. Neck: No JVD. Cardiovascular: RRR. No gallops. No murmurs. Lungs: Clear to auscultation, no use of accessory muscles, no crackles or wheezes. Skin: No jaundice. No rashes. Abdomen: Normal bowel sounds, abdomen soft and nontender. Ostomy present. Extremities: No cyanosis or clubbing. Musculoskeletal: No swollen or erythematous joints. Neurological: Moves all 4 extremities. No myoclonus. Discharge Data Studies Completed and Pending Completed Studies During Hospitalization Category Date Time Status CT abdomen pelvis wo con [id number] Stat Cat Scan 12/07/23 13:39 Completed Radiology Impressions Abdomen/Pelvis CT 12/07/23 13:39 IMPRESSION: 1. Mild fluid distention of the stomach. 2. RIGHT lower quadrant ileostomy with no obstruction. Near complete total colectomy. 3. Cholelithiasis without acute cholecystitis. 4. No renal obstruction. Laboratory Results WBC 8.10 10^3/uL (3.29-11.43) 12/08/23 04:28 RBC 3.82 10^6/uL (3.85-5.65) L 12/08/23 04:28 Hgb 11.40 g/dL (11.27-16.99) 12/08/23 04:28 Hct 35.0 % (36-47) L 12/08/23 04:28 MCV 91.6 fl (85-98) 12/08/23 04:28 MCH 29.8 pg (27-33) 12/08/23 04: MCHC 32.6 g/dL (30-55) 12/08/23 04:28 RDW 13.9 % (12.1-15.1) 12/08/23 04:28 Plt Count 295 10^3/cmm (157-399) 12/08/23 04:28 MPV 10.5 fL (7.4-10.4) H 12/08/23 04:28 Neut % (Auto) 64.0 % 12/08/23 04:28 Lymph % (Auto) 25.6 % 12/08/23 04:28 Archer % (Auto) 9.8 % 12/08/23 04:28 Eos % (Auto) 0.0 % 12/08/23 04:28 Baso % (Auto) 0.2 % 12/08/23 04:28 Neut # (Auto) 5.19 10^3/uL (1.8-7.7) 12/08/23 04:28 Lymph # (Auto) 2.1 10^3/uL (0.8-4.8) 12/08/23 04:28 Archer # (Auto) 0.8 10^3/uL (0.2-0.9) 12/08/23 04:28 Eos # (Auto) 0.0 10^3/uL (0.0-0.8) 12/08/23 04:28 Baso # (Auto) 0.0 10^3/uL (0.0-0.1) 12/08/23 04:28 Nucleated RBC % (auto) 0 % 12/08/23 04:28 Nucleated RBCs # 0.0 /100WBC 12/08/23 04:28 Sodium 143 mmol/L (136-145) 12/08/23 15:55 Potassium 4.7 mmol/L (3.5-5.1) 12/08/23 15:55 Chloride 109 mmol/L (98-107) H 12/08/23 15:55 Carbon Dioxide 18 mmol/L (22-29) L 12/08/23 15:55 Anion Gap 20.7 (5-19) H 12/08/23 15:55 BUN 39 mg/dL (8-23) H 12/08/23 15:55 Creatinine 1.2 mg/dL (0.5-0.9) H 12/08/23 15:55 GFR Calculation 44.9 mL/min (90-130) L 12/08/23 15:55 Glucose 102 mg/dL (65-115) 12/08/23 15:55 Calculated Osmolality 306 mOsm/kg (285-295) H 12/08/23 15:55 Lactic Acid 1.5 mmol/L (0.5-2.2) 12/07/23 11:42 Calcium 8.8 mg/dL (8.5-10.5) 12/08/23 15:55 Phosphorus 4.2 mg/dL (2.5-4.5) 12/08/23 04:28 Magnesium 2.1 mg/dL (1.7-2.3) 12/08/23 04:28 Total Bilirubin 0.3 mg/dL (0.15-1.2) 12/07/23 11:42 AST 15 U/L (0-32) 12/07/23 11:42 ALT 16 U/L (0-33) 12/07/23 11:42 Alkaline Phosphatase 120 U/L (35-105) H 12/07/23 11:42 Troponin T Baseline 15 ng/L (0-10) H 12/07/23 11:42 Troponin T 120 Minute 26.36 ng/L (0-10) H 12/07/23 13:53 Delta Troponin T 11.36 ABS# (0-10) H* 12/07/23 13:53 Troponin T Hi Sens 6Hr 36.51 ng/L (0-10) H 12/07/23 17:18 Troponin T Hi Sens 6Hr Delta 21.51 ng/L (0-12) H* 12/07/23 17:18 C-Reactive Protein 3.0 mg/L (0.0-4.9) 12/08/23 04:28 Total Protein 8.3 g/dL (6.6-8.7) 12/07/23 11:42 Albumin 4.7 g/dL (3.5-5.2) 12/07/23 11:42 Globulin 3.6 g/dL (1.3-4.6) 12/07/23 11:42 Lipase 165 U/L (13-60) H 12/07/23 11:42 Urine Color Yellow (Yellow) 12/07/23 13:33 Urine Appearance Cloudy (CLEAR) A 12/07/23 13:33 Urine pH 5.5 (5-7) 12/07/23 13:33 Ur Specific [place] 1.020 (1.005-1.030) 12/07/23 13:33 Urine Protein 2+ (Negative) A 12/07/23 13:33 Urine Glucose (UA) Negative (Normal) 12/07/23 13:33 Urine Ketones Trace (Negative) 12/07/23 13:33 Urine Blood Negative (Negative) 12/07/23 13:33 Urine Nitrate Negative (Negative) 12/07/23 13:33 Urine Bilirubin Negative (Negative) 12/07/23 13:33 Urine Urobilinogen 1.0 mg/dL (Negative) 12/07/23 13:33 Ur Leukocyte Esterase Negative (Negative) 12/07/23 13:33 Urine RBC 0-4 /hpf (0-2) H 12/07/23 13:33 Urine WBC 0-4 /hpf (0-5) H 12/07/23 13:33 Ur Squamous Epith Cells 0-4 /hpf (0-5) H 12/07/23 13:33 Amorphous Sediment Not Reportable 12/07/23 13:33 Urine Bacteria 1+ /hpf (NONE) H 12/07/23 13:33 Hyaline Casts 80-100 /lpf H 12/07/23 13:33 C. difficile (PCR) Negative (Negative) 12/07/23 22:30 Vitals Last Vital Signs Temp 98.1 F 12/09/23 11:48 Pulse 62 12/09/23 11:48 Resp 16 12/09/23 11:48 BP 171/82 12/09/23 11:48 Pulse Ox 99 12/09/23 11:48 O2 Del Method Room Air 12/09/23 11:48 Discharge Plan Discharge Patient Disposition: Home Condition: Stable Prescriptions: New metronidazole 500 mg tablet 500 mg PO Q8H 7 Days Qty: 21 0RF Rx Instructions: capsules if available ciprofloxacin HCl 500 mg tablet 500 mg PO BID 7 Days Qty: 14 0RF Rx Instructions: capsules if available sodium bicarbonate 650 mg tablet 650 mg PO DAILY 7 Days Qty: 7 0RF Continued olmesartan 20 mg tablet 20 mg PO DAILY calcitonin (salmon) 200 unit/actuation spray,non-aerosol 1 spray intranasal (ALT) DAILY amlodipine 10 mg tablet 10 mg PO DAILY atorvastatin 10 mg tablet 10 mg PO QPM venlafaxine 37.5 mg tablet 37.5 mg PO BID metoprolol tartrate 50 mg tablet 50 mg PO BID levothyroxine 100 mcg tablet 100 mcg PO DAILY ondansetron 4 mg tablet,disintegrating 4 mg PO BID PRN (Reason: Nausea) Protonix 40 mg tablet,delayed release (DR/EC) 40 mg PO DAILY PRN (Reason: Acid Reflux) Discontinued amoxicillin 500 mg capsule 500 mg PO BID Qty: 14 0RF Discharge Orders: Discharge Order (Routine); Ordered 12/09/23 Ordered By: Jaren Quinn Referrals: Sugey Bland MD [Primary Care Provider] - 4-7 days (We have notified your physician's clinic of the need for a follow-up appointment to be scheduled. If you have not heard from them within the next 2 business days, please call them directly. ) Discharge Diet: Advance as tolerated and Usual diet Discharge Activity: Resume usual activity and Increase activity as tolerated Patient Instructions: Ciprofloxacin (By mouth) (Cipro), Metronidazole ([facility]) (Flagyl, Flagyl 375, Flagyl ER, Likmez), Sodium Bicarbonate (By mouth), Dehydration (DC), Acute Kidney Injury (DC), Metabolic Acidosis (GEN), Cyclic Vomiting Syndrome (DC), Opioid Safety, Pain Management Activity Restrictions/Additional Instructions: 1. Return precautions discussed with patient. 2. Take medications as prescribed. 3. Diet as tolerated. 4. Follow-up with PCP within 1 week with repeat labs. Discharge Attestations Time Spent in Discharge Care*: greater than 30 min Quality Metrics Clinical Quality Measures [ No reported AMI, CVA or VTE this stay] Coding Level of Care Code Acute Code for Chg Fwd Diagnoses BRENTON (acute kidney injury) N17.9 Acute dehydration E86.0 Elevated troponin R79.89 Cyclical vomiting R11.15 Metabolic acidosis E87.20
[2023-12-09 15:07] VITALS: BP 171/82; PULSE 62; RESP 16; TEMP 36.7; O2SAT 99
== END 2023-12-09 15:10 | disposition home or self-care (01) | DRG 683 ==
LOC: ER 15:31 → MEDSURG 17:30
PROVIDERS: Emergency Medicine; Internal Medicine; Admitting Provider Internal Medicine; Emergency Provider Nurse Practitioner Family; PCP Family Medicine; Visit Provider Internal Medicine
DX: N17.9 Acute kidney failure, unspecified (principal); E87.20 Acidosis, unspecified; K50.90 Crohn's disease, unspecified, without complications; I5A Non-ischemic myocardial injury (non-traumatic); R11.15 Cyclical vomiting syndrome unrelated to migraine; E86.0 Dehydration; E78.5 Hyperlipidemia, unspecified; M81.0 Age-related osteoporosis without current pathological fracture; E03.9 Hypothyroidism, unspecified; F17.200 Nicotine dependence, unspecified, uncomplicated; I10 Essential (primary) hypertension; Z79.899 Other long term (current) drug therapy; Z79.890 Hormone replacement therapy; Z93.2 Ileostomy status; Z90.49 Acquired absence of other specified parts of digestive tract; Z88.6 Allergy status to analgesic agent; Z88.8 Allergy status to other drugs, medicaments and biological substances
CPT/HCPCS: 36415; 74176; 80048; 80053; 81003; 81015; 83605; 83690; 83735; 84100; 84484; 85025; 86140; 87493; 93005; 96360; 96372; 99285; J0692; J1644; J1650; J2060; J2470; J2550; J2765; J3490; J7030; J7070; J7120

== ENCOUNTER 2024-06-10 08:29 | Outpatient (CLI) | payer MEDICARE, BC, SELFPAY ==
--- NOTE | 2024-06-10 08:36 | CT_ITS ---
WS: [id number] LDCT LUNG CANCER SCREENING TECHNIQUE: Noncontrast CT of the chest with coronal and sagittal reformatted images. CLINICAL INFORMATION: NICOTINE DEPENDENCE,CIGARETTES COMPARISON: None. DLP: 55.82 mGy.cm DIvol: Mean CTDIvol: 1.00 (mGy) All CT scans at [facility] use at least one of these dose optimization techniques: automated exposure control; mA and/or kV adjustment per patient size (includes targeted exams where dose is matched to clinical indication); or iterative reconstruction. FINDINGS: No suspicious pulmonary parenchymal abnormalities. A few scattered subpleural pulmonary nodules largest measuring 2 to 3 mm. Subsegmental atelectasis in the lingula Aortic calcification. Coronary calcification. No mediastinal or hilar lymphadenopathy. No axillary lymphadenopathy. Mild thoracic curve. Mild thoracic kyphosis. Slightly prominent ascending thoracic aorta measuring 3.[address]/CT lung screening [id number] IMPRESSION: LUNG-RADS: 2-Benign Appearance or Behavior FOLLOW UP: 12 Month: Continue annual screening with LDCT
== END 2024-06-10 08:30 | disposition home or self-care (01) ==
LOC: RAD 08:30
PROVIDERS: PCP Family Medicine; Visit Provider Family Medicine
DX: Z12.2 Encounter for screening for malignant neoplasm of respiratory organs (principal); F17.210 Nicotine dependence, cigarettes, uncomplicated; R91.8 Other nonspecific abnormal finding of lung field; J98.11 Atelectasis; I70.0 Atherosclerosis of aorta; I25.10 Atherosclerotic heart disease of native coronary artery without angina pectoris; M43.8X4 Other specified deforming dorsopathies, thoracic region; M40.294 Other kyphosis, thoracic region
CPT/HCPCS: 71271

== ENCOUNTER 2024-06-13 14:25 | Outpatient (CLI) | payer MEDICARE, BC, SELFPAY ==
--- NOTE | 2024-06-13 14:32 | XR_ITS ---
WS: [id number] SCREENING DEXA SCAN [facility] CLINICAL INFORMATION: POSTMENOPAUSAL COMPARISON: 2018 FINDINGS: The L1-L4 bone mineral density measures 0.874 g/cm2. This corresponds to a T score score of -2.5 and Z score of -1.3. Left femoral neck bone mineral density measures 0.928 g/cm2. This corresponds to a T score of -0.6 and Z score of 0.4. Right femoral neck bone mineral density measures 0.875 g/cm2. This corresponds to a T score -1.1of and Z score of 0.0. Mean femoral neck bone mineral density measures 0.901 g/cm2. This corresponds to a T score of -0.8 and Z score of 0.2. XR/XR DEXA axial skeleton* [id number] IMPRESSION: Osteoporosis lumbar spine. Osteopenia RIGHT femoral neck. Normal bone mineraliz ation LEFT femoral neck. Patient's FRAX calculated 10 year probability for major osteoporotic fracture i s 25.3% and osteoporotic hip fracture is 6.5%. Bone mineral density decreased -1.2% lumbar spine Bone mineral density increased 1.7% femoral necks
--- NOTE | 2024-06-13 14:32 | MM_ITS ---
WS: [id number] BILATERAL 3D TOMOSYNTHESIS DIGITAL SCREENING MAMMOGRAPHY WITH CAD CLINICAL INFORMATION: SCREENING HISTORY: Screening mammogram. No current complaints. COMPARISON: 2021 TECHNIQUE: Bilateral CC and MLO views. FINDINGS: Scattered fibroglandular densities bilaterally. No suspicious focal mass, asymmetry, calcifications, or architectural distortion. No evidence of malignancy. Stable RIGHT posterior breast nodule or intramammary lymph node. A few incidental calcifications. MM/MM scr tomosynthesis [id number] IMPRESSION: DENSITY: There are scattered areas of fibroglandular density. BI-RADS: 2 - Benign. FOLLOW UP: 1 Year Follow-up Recommend return to annual screening mammography.
== END 2024-06-13 14:26 | disposition home or self-care (01) ==
LOC: RAD 14:27
PROVIDERS: PCP Family Medicine; Visit Provider Family Medicine
DX: Z12.31 Encounter for screening mammogram for malignant neoplasm of breast (principal); Z78.0 Asymptomatic menopausal state; R92.323 Mammographic fibroglandular density, bilateral breasts; N63.10 Unspecified lump in the right breast, unspecified quadrant; R92.1 Mammographic calcification found on diagnostic imaging of breast
CPT/HCPCS: 77063; 77067; 77080